=== PATIENT | female | born 1950 | race Caucasian/White ===

== ENCOUNTER → 2016-04-27 | Outpatient (CLI) | payer OTHER, MEDICAID | LOC: BHLMT 14:45 | PROVIDERS: ATTEND Internal Medicine Interventional Cardiology | DX: I48.91 Unspecified atrial fibrillation (principal); R06.00 Dyspnea, unspecified | CPT/HCPCS: 93306-PO ==

== ENCOUNTER 2016-05-13 13:31 | Day surgery (SDC) | payer OTHER, MEDICAID ==
[2016-05-13] MEDS ORDERED: MIDAZOLAM 2 MG/2 ML VIAL IVP ONE (13:39)
[2016-05-13] MEDS ORDERED: BENZOCAINE UNIT DOSE SPRAY HURRICAINE MM ONE (13:39)
[2016-05-13] MEDS ORDERED: fentaNYL 100 MCG/2 ML INJ IVP ONE (13:39)
[2016-05-13] MEDS ORDERED: NS 1,000 ML IV ONE (13:39)
[2016-05-13] MEDS ORDERED: fentaNYL 100 MCG/2 ML INJ ONE (14:17)
[2016-05-13] MEDS ORDERED: MIDAZOLAM 2 MG/2 ML VIAL ONE (14:17)
--- NOTE | 2016-05-25 16:48 | ECHO ---
[id number] + + [address] : : [place] [address] : : [phone] + + Transesophageal Echocardiographic Report + + :Name: TIGIST DE PAZ Date: 05/13/2016 02:37 PM : : Hospital Admission Number: [id number] Loc ation: CVC: :: 1950 Gender: Female : :Age: 66 yrs Race: WH,White : :Reason For Study: Eval LV Fx : :History: Eval Valves : + + MMode/2D Measurements \T\ Calculations LVOT diam: 1.9 cm LVOT area: 2.8 cm2 Normal Measurement Values: + + :LVIDd (3.5-5.7cm) IVSd (0.6-1.1cm) LVPWd (0.6-1.1cm) Aortic Root (2.0-3.7cm)Left Atrium (1.5-4.0cm): :LV Vol(d) (76-115ml) LV Vol(s) (29-48ml) Ejec Fraction (50-65%)PV Dawit (0.6- 1.2m/s) TV Dawit (0.4-1.0m/s) : :MV E Dawit (0.8-1.0m/s)MV A Dawit (0.3-1.0m/s)LVOT Dawit (0.7-1.2m/s) Asc Ao Dawit ( 0.9-1.8m/s) : + + Doppler Measurements \T\ Calculations AI max dawit: 364.2 cm/sec AI max P.1 mmHg AI dec slope: 128.5 cm/sec2 AI P1/2t: 830.2 msec Left Ventricle The left ventricular ejection fraction is normal. Right Ventricle There is a pacemaker lead in the right ventricle. The right ventricular systolic function is normal. Atria Injection of contrast documented no interatrial shunt. The interatrial septum is intact with no evidence for an atrial septal defect. No left atrial mass or thrombus visualized. No thrombus is detected in the left atrial appendage. The right atrium is mild to moderately dilated. Mitral Valve The mitral valve is normal. There is no mitral valve stenosis. There is moderate to severe mitral regurgitation. Tricuspid Valve There is moderate tricuspid regurgitation. Aortic Valve A bicuspid aortic valve cannot be excluded. There is no aortic stenosis. Severe aortic regurgitation. There is an eccentric jet of aortic insufficiency directed against the anterior mitral leaflet. Pressure 1/2 time 815ms, AI ERO .53 cm2. Pulmonic Valve The pulmonic valve is normal in structure and function. Conclusion A 2D transesophageal echocardiogram with color flow Doppler was performed. The left ventricular ejection fraction is normal. There is a pacemaker lead in the right ventricle. Injection of contrast documented no interatrial shunt. The interatrial septum is intact with no evidence for an atrial septal defect. No left atrial mass or thrombus visualized. No thrombus is detected in the left atrial appendage. The right atrium is mild to moderately dilated. A bicuspid aortic valve cannot be excluded. Severe aortic regurgitation. There is an eccentric jet of aortic insufficiency directed against the anterior mitral leaflet. Pressure 1/2 time 815ms, AI ERO .53 cm2 There is moderate to severe mitral regurgitation. There is moderate tricuspid regurgitation. Final Reading Physician: Kirti Fields signed on 05/25/2016 04:46 PM Ordering Physician: Naresh Ayoub Performed By: Naresh Ayoub MD
== END 2016-05-13 16:30 | disposition home or self-care (01) ==
LOC: FCATH 13:31
PROVIDERS: ATTEND Internal Medicine Interventional Cardiology
PROC: B246ZZ4 Ultrasonography of Right and Left Heart, Transesophageal (ICD-10-PCS; principal; 2016-05-13)
DX: I34.0 Nonrheumatic mitral (valve) insufficiency (principal); Z79.01 Long term (current) use of anticoagulants; I48.0 Paroxysmal atrial fibrillation; I47.1 Supraventricular tachycardia
CPT/HCPCS: J2250; J3010

== ENCOUNTER 2016-06-14 10:25 | Day surgery (SDC) | payer OTHER, MEDICAID ==
[2016-06-14] MEDS ORDERED: PROPOFOL/EMULSION 500 MG/50 ML BOTTLE IV ONE (11:31)
--- NOTE | 2016-06-14 13:23 | GPN ---
[f rep st] PROCEDURE NOTE DATE OF PROCEDURE: 06/14/2016 PROCEDURE: Esophagogastroduodenoscopy and biopsy. INDICATION: Abdominal pain, reflux, and the patient is going to be undergoing valve replacement in the near future. PREOPERATIVE DIAGNOSIS: Rule out peptic ulcer disease. POSTOPERATIVE DIAGNOSES: 1. Crepe paper esophagus. 2. Gastritis with small erosions. 3. Normal duodenum. 4. Lap-Band present in upper portion of the stomach. INFORMED CONSENT: I discussed with the patient regarding the procedure, alternatives, benefits, and risks, including bleeding, perforation, infection, risk of medication. Informed consent was signed and witnessed. COMPLICATIONS: None immediate. MEDICATIONS: General anesthesia. DESCRIPTION OF PROCEDURE: After adequate anesthesia performed, the patient was in left lateral decu bitus position and the forward-viewing upper endoscope was entered in the oropharynx and advanced un marva direct vision down the esophagus. The proximal esophagus had some mild crepe paper changes, and it got more prominent as you got into the middle and distal esophagus. The patient did have a smal l hiatal hernia present. There was a Lap-Band present in the upper portion of the stomach. I was a ble to advance the scope easily through the Lap-Band, into the distal stomach. There was gastritis with small erosions in the antrum and erythema, and some gastritis in the body. Biopsies were taken for histologic review. The pylorus was normal. The duodenal bulb and sweep were normal. The endo scope was withdrawn back in the stomach and retroflexed examination was performed. Photographs of t he Lap-Band in place were obtained. The endoscope was withdrawn in the esophagus and biopsies from both the distal and proximal esophagus were obtained. The endoscope was then completely withdrawn, confirming the above findings. The patient tolerated the procedure well and was transferred to the recovery room in satisfactory condition. IMPRESSION: 1. Changes consistent with crepe paper esophagus, which could be related to eosinophilic esophagiti s or reflux esophagitis, among other etiologies. 2. Gastritis with moderate inflammation of the antrum with erosions and mild inflammation in the leilani dy, status post biopsies. 3. Normal duodenum. RECOMMENDATIONS: 1. Start PPI such as pantoprazole 40 mg once daily, half an hour to an hour before breakfast. 2. Anti-reflux lifestyle changes. 3. Follow up pathology of polyps with evidence of eosinophilic esophagitis. May consider treatment with fluticasone, swallowed not inhaled. Alternatively, we can keep on a PPI for a month or two an d repeat to see if there is any evidence of PPI responsive EoE, i.e., that the esophagus would look normal and biopsies not reveal any evidence of eosinophilia. 4. Proceed with cardiac surgery as planned. I do not see any significant lesion in the upper GI tr act that would cause any significant blood loss with anticoagulation. 5. Further recommendations to follow results of above and clinical course. 6. Follow up with primary care and specialists as scheduled. 7. As noted above, the changes in the esophagus can be seen with eosinophilic esophagitis or with r eflux esophagitis. I do not think this is esophageal dissecans superficialis, which is also a benig n condition but can be associated with pemphigus vulgaris, use of bisphosphonates, and the other judah ologies as well. I expect the patient will do well with PPI therapy. The question will be how long will need to be on PPI therapy and I can determine that when I see her as an outpatient down the ro ad after her cardiac surgery. Thank you for allowing me participate in the patient's healthcare. Do not hesitate to call me with questions. Copy requested to: Dr. Armenta /[id number]/MODL
[2016-06-14] MEDS ORDERED: ACETAMINOPHEN 500 MG TAB ONE (14:11)
== END 2016-06-14 14:35 | disposition home or self-care (01) ==
LOC: FSGY 10:25
PROVIDERS: ATTEND Internal Medicine Gastroenterology
PROC: 0DB68ZX Excision of Stomach, Via Natural or Artificial Opening Endoscopic, Diagnostic (ICD-10-PCS; principal; 2016-06-14 11:30)
PROC: 0DB58ZX Excision of Esophagus, Via Natural or Artificial Opening Endoscopic, Diagnostic (ICD-10-PCS; principal; 2016-06-14 11:30)
DX: K29.70 Gastritis, unspecified, without bleeding (principal); K21.9 Gastro-esophageal reflux disease without esophagitis; Z98.84 Bariatric surgery status; I48.91 Unspecified atrial fibrillation; G47.33 Obstructive sleep apnea (adult) (pediatric); E66.9 Obesity, unspecified
CPT/HCPCS: J2704

== ENCOUNTER 2016-06-21 10:55 | Inpatient (IN) | payer OTHER, MEDICAID ==
[2016-06-21] MEDS ORDERED: diphenhydrAMINE 25 MG CAP PO ONE (11:12)
[2016-06-21] MEDS ORDERED: DIAZEPAM 5 MG TAB PO ONE (11:12)
[2016-06-21] MEDS ORDERED: NS 1,000 ML IV ONE (11:12)
[2016-06-21] MEDS ORDERED: ASPIRIN EC 325 MG TAB PO ONE (11:12)
[2016-06-21] MEDS ORDERED: FAMOTIDINE 20 MG TAB PO ONE (11:12)
--- NOTE | 2016-06-21 11:40 | CPEKG ---
Heart Rate: 71 RR Interval: 845 QRSD Interval: 114 QT Interval: 488 QTC Interval: 531 QRS Ashton: 23 T Wave Ashton: 227 EKG Severity - ABNORMAL ECG - EKG Impression: AFIB/FLUT AND V-PACED COMPLEXES Electronically Signed By: Javi Vyas 22-Jun-2016 11:48:50
[2016-06-21 12:05] LABS: % IMMATURE GRANULYOCYTES 0.4 % (0.0-1.1); ABSOLUTE IMMATURE GRANULOCYTES 0.03 10^3/uL (0.00-0.10); ADD DIFF? NO; ADD MORPH? NO; ADD SCAN? NO; ATYPICAL LYMPHOCYTE FLAG 10 (0-99); FRAGMENT RBC FLAG 20 (0-99); HEMATOCRIT 34.9 % (38.0-47.0); HEMOGLOBIN 10.3 g/dL (12.6-16.3); LEFT SHIFT FLG 0 (0-99); LIPEMIA HEMOLYSIS FLAG 70 (0-99); MEAN CELL HEMOGLOBIN 23.5 pg (27.9-34.1); MEAN CELL HEMOGLOBIN CONCENTR. 29.5 g/dL (32.4-36.7); MEAN CELL VOLUME 79.7 fL (81.5-99.8); MEAN PLATELET VOLUME 9.9 fL (8.7-11.7); PLATELET CLUMPS FLAG 0 (0-99); PLATELET COUNT 238 10^3/uL (150-400); RED BLOOD CELL COUNT 4.38 10^6/uL (4.18-5.33); RED CELL DISTRIBUTION WIDTH 15.9 % (11.5-15.2)
[2016-06-21 12:27] LABS: INR 1.07 (0.83-1.16); PROTIME(PATIENT) 13.8 SEC (12.0-15.0)
[2016-06-21 12:31] LABS: ANION GAP 16 mEq/L (8-16); CALCIUM 9.6 mg/dL (8.5-10.4); CARBON DIOXIDE 20 mEq/l (22-31); CHLORIDE 105 mEq/L (97-110); CREATININE 1.2 mg/dL (0.6-1.0); GLOMERULAR FILTRATION RATE 45; GLUCOSE 87 mg/dL (70-100); POTASSIUM 4.5 mEq/L (3.5-5.2); SODIUM 141 mEq/L (134-144)
[2016-06-21] MEDS ORDERED: MIDAZOLAM 2 MG/2 ML VIAL ONE ×2 (13:07→14:17)
[2016-06-21] MEDS ORDERED: LIDOCAINE 1% 30 ML SDV ONE (13:07)
[2016-06-21] MEDS ORDERED: fentaNYL 100 MCG/2 ML INJ ONE (13:07)
[2016-06-21] MEDS ORDERED: IOPAMIDOL (ISOVUE 370) 100 ML BTL IV ONE (13:08)
[2016-06-21 14:07] LABS: HEMOGLOBIN A1C 5.5 % (4.0-6.0)
[2016-06-21] MEDS ORDERED: ACETAMINOPHEN 325 MG TAB PO PRN (15:08)
[2016-06-21] MEDS ORDERED: ONDANSETRON 4 MG/2 ML VIAL IVP PRN (15:08)
[2016-06-21] MEDS ORDERED: ATROPINE SULFATE 1 MG/10 ML SYR IVP PRN (15:08)
[2016-06-21] MEDS ORDERED: NS 1,000 ML IV SCH (15:15)
--- NOTE | 2016-06-21 15:18 | PDDXCAT ---
Diagnostic Cath Note - . Date: 06/21/16 Outdoor Landscape Architect: Mega Indication: other (Valvular heart disease; surgery planned for 06/22.) - Procedure Access: right groin Procedure: left heart catheterization, coronary angiography, left ventriculogram , right heart catheterization - Materials Left Heart Cath size: 6F Left Heart Cath materials: standard multipack (JL4, JR4, pigtail) Right Heart Cath size: 7F Right Heart Cath materials: PWP catheter - Findings-Left Heart Catheterization LM: Normal. LAD: Very minimal irregularities. LCX: Very minimal irregularities. RCA: Very minimal irregularities. EDP: 25 mmHg LVEF: 60%; severe mitral regurgitation noted. Wall motion: [place] shaped apex; no hypokinetic zones. - Findings-Right Heart Catheterization RA: 20 mmHg RV: 62/18 mmHg PA: 72/39/52 mmHg (O2 sat 41.1%) PAOP: 26 mmHg AO: 155/82/98 (O2 sat 91.0%) CO: 2.91 L/min CI: 1.33 L/min/sq mtr Complications: None Estimated blood loss: <50ml Closure method: Angioseal Assessment: 1) Preserved LV systolic function. 2) No significant CAD. 3) Severe pulmonary hypertension. 3) Severe mitral regurgitation. Patient Problems: Problems Problem Status Onset Atrial fibrillation with rapid ventricular response Acute Cardiomyopathy Acute
[2016-06-21] MEDS ORDERED: CYCLOBENZAPRINE 10 MG TAB PO PRN (16:01)
[2016-06-21] MEDS ORDERED: ACETAMN/DIPHENHYDRAMINE 500/25MG TAB PO PRN (16:01)
--- NOTE | 2016-06-21 16:52 | PDGENHP ---
History and Physical - Chief Complaint preop multi valve repair/replace and ablation of atrial fibrillation - History of Present Illness 66 yo morbidly obese female with a hx of HOCM, PPM/ICD, and severe MR/TR/AI associated with class III symptoms, admitted one day in advance of valvular surgery to complete risk stratification. No significant changes in functional capacity since last seen in clinic. Still breathless after only a few steps and relying on assistance to complete ADLs. Denies wt gain, leg edema, palpitations , increased orthopnea or syncope. Did see GI last week and cleared for surgery. Precautionary bxs taken but results not yet known. Eliquis on hold since EGD. History Information - Allergies/Home Medication List Allergies/Adverse Reactions: levofloxacin [From Levaquin] Allergy (Intermediate, Verified 05/21/14 15:47) Muscle Cramping aspirin Allergy (Verified 02/08/16 19:04) Other-Enter Comments codeine Allergy (Verified 02/08/16 19:04) Other-Enter Comments Home Medications: Apixaban [Eliquis] 5 mg PO BID 08/11/14 [Last Taken 06/20/16 21:00] Citalopram [CeleXA 20 MG] 40 mg PO DAILY 08/11/14 [Last Taken 06/21/16] Cyclobenzaprine [Flexeril 10 MG (*)] 10 mg PO TID PRN 08/11/14 [Last Taken 12/11] Nystatin Powder [Mycostatin Powder] 1 tiffanie TP DAILY 08/11/14 [Last Taken 06/21/16 ] Simvastatin [Zocor] 20 mg PO HS 08/11/14 [Last Taken 06/19/16] Docusate Sodium [Colace 100 MG (*)] 100 mg PO BID 01/07/16 [Last Taken 06/20/16 09:00] Ergocalciferol [Vitamin D2 (*)] 50,000 unit PO Q14D 01/07/16 [Last Taken ] Acetaminophen [Tylenol ES 500 mg (*)] 1,000 mg PO Q4-6PRN PRN 02/08/16 [Last Taken 06/21/16] Acetamn/Diphenhydramine 500/25 [Tylenol PM (*)] 2 each PO HS PRN 06/21/16 [Last Taken Unknown] Acyclovir 800 mg PO 5XD PRN 06/21/16 [Last Taken Unknown] Diclofenac Sodium [Voltaren Gel (*)] 2 gm TP QID 06/21/16 [Last Taken 06/21/16] Furosemide [Lasix 20 MG (*)] 20 mg PO DAILY 06/21/16 [Last Taken 06/18/16] Pantoprazole Sodium [Protonix 40mg (*)] 40 mg PO BID 06/21/16 [Last Taken ] oxyCODONE/APAP 5/325 [Percocet 5/325 (*)] 1 tab PO Q4HRS PRN 06/21/16 [Last Taken Unknown] I have personally reviewed and updated: family history, medical history, social history, surgical history - Past Medical History atrial fibrillation (paroxysmal), arthritis (knees, back), glaucoma, hypertension, recurrent UTI Additional medical history: HOCM - treated with alcohol septal ablation. Dual chamber PPM/ICD - Biotronik Lumax; 97% Vpaced. Underlying atrial tachycardia. Chronic anticoagulation - Eliquis. obesity, BMI 35-40. ANNETTE "when heavier". chronic joint pain. glaucoma. depression with anxiety. Hpylori gastritis and secondary anemia Apr 2016 - Surgical History Reports: ablation (alcohol septal ablation 2004; left AT ablation Jan 2016), pacemaker/AICD (Biotronik Lumax 2009) Additional surgical history: gastric banding 2008. left TKA 2014 - Family History Positive for: cancer, diabetes type II, renal disease, vascular disease, CAD, hypertension - Social History Smoking Status: Never smoked Alcohol Use: None Review of Systems ROS: 10pt was reviewed & negative except for what was stated in HPI & below Gastrointestinal: Reports: other (early satiety d/t gastric banding) Physical Exam Constitutional: no apparent distress (still sleepy from cath), obese Eyes: anicteric sclera, other (PER) Ears, Nose, Mouth, Throat: moist mucous membranes, other (no dental disrepair) Cardiovascular: regular rate and rhythym, systolic murmur (II/ BAR LSB, loudest at apex.), other (left chest pacer pocket ) Respiratory: no respiratory distress, clear to auscultation (anteriorly) Gastrointestinal: soft, non-tender abdomen Genitourinary: other (morocho in place) Skin: warm, normal color Musculoskeletal: other (symmetric tone, no visible edema, rt groin cath site soft and dressing intact) Lab Data & Imaging Review 06/21/16 11:45 06/21/16 11:45 WBC 7.14 10^3/uL (3.80-9.50) 06/21/16 11:45 RBC 4.38 10^6/uL (4.18-5.33) 06/21/16 11:45 Hgb 10.3 g/dL (12.6-16.3) L 06/21/16 11:45 Hct 34.9 % (38.0-47.0) L 06/21/16 11:45 MCV 79.7 fL (81.5-99.8) L 06/21/16 11:45 MCH 23.5 pg (27.9-34.1) L 06/21/16 11:45 MCHC 29.5 g/dL (32.4-36.7) L 06/21/16 11:45 RDW 15.9 % (11.5-15.2) H 06/21/16 11:45 Plt Count 238 10^3/uL (150-400) 06/21/16 11:45 MPV 9.9 fL (8.7-11.7) 06/21/16 11:45 Neut % (Auto) 69.0 % (39.3-74.2) 06/21/16 11:45 Lymph % (Auto) 21.0 % (15.0-45.0) 06/21/16 11:45 Sumner % (Auto) 8.3 % (4.5-13.0) 06/21/16 11:45 Eos % (Auto) 0.7 % (0.6-7.6) 06/21/16 11:45 Baso % (Auto) 0.6 % (0.3-1.7) 06/21/16 11:45 Nucleat RBC Rel Count 0.0 % (0.0-0.2) 06/21/16 11:45 Absolute Neuts (auto) 4.93 10^3/uL (1.70-6.50) 06/21/16 11:45 Absolute Lymphs (auto) 1.50 10^3/uL (1.00-3.00) 06/21/16 11:45 Absolute Monos (auto) 0.59 10^3/uL (0.30-0.80) 06/21/16 11:45 Absolute Eos (auto) 0.05 10^3/uL (0.03-0.40) 06/21/16 11:45 Absolute Basos (auto) 0.04 10^3/uL (0.02-0.10) 06/21/16 11:45 Absolute Nucleated RBC 0.00 10^3/uL (0-0.01) 06/21/16 11:45 Immature Gran % 0.4 % (0.0-1.1) 06/21/16 11:45 Immature Gran # 0.03 10^3/uL (0.00-0.10) 06/21/16 11:45 PT 13.8 SEC (12.0-15.0) 06/21/16 11:45 INR 1.07 (0.83-1.16) 06/21/16 11:45 Sodium 141 mEq/L (134-144) 06/21/16 11:45 Potassium 4.5 mEq/L (3.5-5.2) 06/21/16 11:45 Chloride 105 mEq/L (97-110) 06/21/16 11:45 Carbon Dioxide 20 mEq/l (22-31) L 06/21/16 11:45 Anion Gap 16 mEq/L (8-16) 06/21/16 11:45 BUN 22 mg/dL (7-23) 06/21/16 11:45 Creatinine 1.2 mg/dL (0.6-1.0) H 06/21/16 11:45 Estimated GFR 45 06/21/16 11:45 Glucose 87 mg/dL (70-100) 06/21/16 11:45 Hemoglobin A1c 5.5 % (4.0-6.0) 06/21/16 11:45 Estim Average Glucose 111 mg/dL (68-126) 06/21/16 11:45 Calcium 9.6 mg/dL (8.5-10.4) 06/21/16 11:45 Patient ABO/Rh B POSITIVE 06/21/16 11:45 Antibody Screen NEGATIVE 06/21/16 11:45 Visualized and Interpreted Chest x-ray results: No Interpretation: LHC/RHC: Rt dom coros, no obstructive dz, EDP 25, EF 60%, 3+ MR , PA 72/39, CI 1.3 EKG Interpretation: Positive for: other (AF, Vpaced) Assessment & Plan Assessment: Severe MR, TR and AI Chronic dCHF, NYHA class III+ Severe PHTN Low cardiac output Chronic anemia - resolving gastritis PAF ICD Plan: CXR, carotid US Type and cross x 2u PRBC Biotronik rep to deactivate ICD 06/22 by 0630. MVA/R, TVA, CoxMaze4, possible AVR pending root size, tomorrow @ 0715. Dr Armenta to review imaging and consent.
[2016-06-21] MEDS ORDERED: CHLORHEXIDINE GLUC HIBICLENS 118 ML BTL TP SCH (21:00)
[2016-06-21] MEDS: ATORVASTATIN CALCIUM 10 MG TAB PO SCH (21:27)
[2016-06-21] MEDS: DOCUSATE SODIUM 100 MG CAP PO SCH (21:27)
[2016-06-21] MEDS: PANTOPRAZOLE SODIUM 40 MG TAB PO SCH (21:34)
[2016-06-21] MEDS: MUPIROCIN 2% 22 GM OINT NS SCH (21:36)
[2016-06-22 05:19] LABS: ANION GAP 8 mEq/L (8-16); CALCIUM 8.9 mg/dL (8.5-10.4); CARBON DIOXIDE 23 mEq/l (22-31); CHLORIDE 108 mEq/L (97-110); GLOMERULAR FILTRATION RATE 56; GLUCOSE 79 mg/dL (70-100); POTASSIUM 4.9 mEq/L (3.5-5.2); SODIUM 139 mEq/L (134-144)
[2016-06-22] MEDS ORDERED: MUPIROCIN 2% 22 GM OINT NS ONE (06:00)
[2016-06-22] MEDS ORDERED: INSULIN REGULAR HUMAN 100 UNIT in NS 100 ML IV ONE (06:00)
[2016-06-22] MEDS ORDERED: SODIUM BICARBONATE 20 MEQ, LIDOCAINE 1% 10 ML in NORMOSOL-R 1,000 ML MISC ONE (06:00)
[2016-06-22] MEDS ORDERED: PHENYLEPHRINE HCL 50 MG in NS 250 ML IV ONE (06:00)
[2016-06-22] MEDS ORDERED: NS 1,000 ML IV ONE (06:00)
[2016-06-22] MEDS ORDERED: MUPIROCIN 2% 22 GM OINT NS SCH (06:00)
[2016-06-22] MEDS ORDERED: niCARdipine/NACL 200 ML IV SCH (06:00)
[2016-06-22] MEDS ORDERED: AMINOCAPROIC ACID 5 GM/20 ML VIAL IV ONE (06:00)
[2016-06-22] MEDS ORDERED: NOREPINEPHRINE BITARTRATE 16 MG in NS 250 ML IV ONE (06:00)
[2016-06-22] MEDS ORDERED: ceFAZolin 2 GM/DEXTROSE 100 ML IV ONE (06:00)
[2016-06-22] MEDS ORDERED: CHLORHEXIDINE GLUC HIBICLENS 118 ML BTL TP SCH (06:00)
[2016-06-22] MEDS ORDERED: MANNITOL 25% 12.5 GM/50 ML VIAL IV ONE (06:00)
[2016-06-22] MEDS ORDERED: CITRATE DEXTROSE SOLN 500 ML BAG MISC ONE (06:00)
[2016-06-22] MEDS ORDERED: DOPamine/DEXTROSE/250 ML BAG IV ONE (06:34)
[2016-06-22] MEDS ORDERED: POTASSIUM Cl (KCl) 20 MEQ/50 ML BAG IV ONE (06:34)
[2016-06-22] MEDS ORDERED: LIDOCAINE 2% 100 MG/5 ML SYR ONE (06:34)
[2016-06-22] MEDS ORDERED: PROTAMINE SULFATE 50 MG/5 ML VIAL IVP ONE (06:34)
[2016-06-22] MEDS ORDERED: MILRINONE/DEXTROSE/100 ML BAG IV ONE (06:34)
[2016-06-22] MEDS ORDERED: niCARdipine/NACL/200 ML BAG IV ONE (06:34)
[2016-06-22] MEDS ORDERED: ALBUMIN 5% 250 ML BOTTLE IV ONE (06:34)
[2016-06-22] MEDS ORDERED: AMINOCAPROIC ACID 5 GM/20 ML VIAL ONE (06:34)
[2016-06-22] MEDS ORDERED: CALCIUM CHLORIDE 1 GM/10 ML INJ ONE (06:34)
[2016-06-22] MEDS ORDERED: NA BICARBONATE 50 MEQ/50 ML VIAL ONE (06:34)
[2016-06-22] MEDS ORDERED: ceFAZolin 1 GM VIAL ONE (06:35)
[2016-06-22] MEDS ORDERED: MAGNESIUM SULFATE 1 GM/2 ML VIAL ONE (06:35)
[2016-06-22] MEDS ORDERED: methylPREDNISolone SOD SUCC 1 GM/8 ML VIAL ONE (06:35)
[2016-06-22] MEDS ORDERED: CITRATE DEXTROSE SOLN 500 ML BAG ONE (06:35)
[2016-06-22] MEDS ORDERED: ADENOSINE 6 MG/2 ML VIAL ONE (06:35)
[2016-06-22] MEDS ORDERED: HEPARIN 10,000 UNIT/10 ML MDV ONE (06:35)
[2016-06-22] MEDS ORDERED: AMIODARONE HCL 150 MG/3 ML VIAL ONE (06:35)
[2016-06-22 06:51] LABS: CHOLESTEROL 135 mg/dL (140-220); CHOLESTEROL/HDL RATIO 3.07 RATIO (1.00-4.44); HIGH DENSITY LIPOPROTEIN 44 mg/dL (40-85); LDL/HDL RATIO 1.16 RATIO (1.00-3.22); LOW DENSITY LIPOPROTEIN 51 mg/dL (80-100); MAGNESIUM 2.3 mg/dL (1.6-2.3); NON-HIGH DENSITY LIPOPROTEIN 91 mg/dL (90-129); TRIGLYCERIDE 203 mg/dL (35-135); VERY LOW DENSITY LIPOPROTEINS 40 mg/dL (8-25)
[2016-06-22] MEDS ORDERED: MIDAZOLAM 2 MG/2 ML VIAL ONE ×2 (07:00→07:08)
[2016-06-22] MEDS ORDERED: fentaNYL 250 MCG/5 ML INJ ONE ×2 (07:08)
[2016-06-22] MEDS ORDERED: PROPOFOL/EMULSION 500 MG/50 ML BOTTLE IV ONE (07:10)
[2016-06-22] MEDS ORDERED: SKIN ADHESIVE (DERMABOND) 1 EACH TP ONE (07:34)
[2016-06-22] MEDS ORDERED: MINERAL OIL 10 ML VIAL TP ONE (07:34)
[2016-06-22] MEDS ORDERED: DEXMEDETOMIDINE HCL 400 MCG in NS 100 ML IV SCH (11:00)
[2016-06-22] MEDS: PANTOPRAZOLE SODIUM 40 MG TAB PO SCH (11:24)
[2016-06-22] MEDS: MUPIROCIN 2% 22 GM OINT NS SCH ×2 (11:24→21:05)
[2016-06-22] MEDS: DOCUSATE SODIUM 100 MG CAP PO SCH ×2 (11:24→21:14)
[2016-06-22] MEDS ORDERED: SODIUM CL NASAL 45 ML BTL EACHNARE PRN (12:23)
[2016-06-22] MEDS ORDERED: METOCLOPRAMIDE 10 MG/2 ML VIAL IVP PRN (12:23)
[2016-06-22] MEDS ORDERED: MEPERIDINE 25 MG/ML SYR IVP PRN (12:23)
[2016-06-22] MEDS ORDERED: ACETAMINOPHEN 650 MG SUPP PR PRN (12:23)
[2016-06-22] MEDS ORDERED: POTASSIUM Cl (KCl) 50 ML IV PRN (12:23)
[2016-06-22] MEDS ORDERED: MAGNESIUM HYDROXIDE 30 ML UDCUP PO PRN (12:23)
[2016-06-22] MEDS ORDERED: LACTULOSE 20 GM/30 ML UDCUP PO PRN (12:23)
[2016-06-22] MEDS ORDERED: D50W 25 GM/50 ML SYR IVP PRN (12:23)
[2016-06-22] MEDS ORDERED: MAGNESIUM SULF 2 GM/WATER 50 ML IV ONE (12:23)
[2016-06-22] MEDS ORDERED: POLYETHYLENE GLYCOL 3350 17 GM PKT PO PRN (12:23)
[2016-06-22] MEDS ORDERED: PANTOPRAZOLE SODIUM 40 MG in NS 100 ML IV ONE (12:23)
[2016-06-22] MEDS ORDERED: CEPACOL LOZENGE PO PRN (12:23)
[2016-06-22] MEDS ORDERED: BISACODYL 10 MG SUPP PR PRN (12:23)
[2016-06-22] MEDS ORDERED: HYDROCODONE/APAP 5/325 TAB PO PRN (12:23)
[2016-06-22] MEDS ORDERED: INSULIN REGULAR HUMAN 100 UNIT in NS 100 ML IV SCH (12:30)
[2016-06-22] MEDS ORDERED: NS 1,000 ML IV SCH (12:30)
[2016-06-22] MEDS ORDERED: IPRATROPIUM/ALBUTEROL 3 ML DEYVIAL IH PRN (12:34)
[2016-06-22] MEDS ORDERED: fentaNYL 100 MCG/2 ML INJ ONE (13:02)
--- NOTE | 2016-06-22 13:36 | POSTOPPROG ---
Post Op Note Date of Operation: 06/22/16 Surgeon: Naresh Armenta Roll Coverer: Asha Anesthesiologist: Roscoe Anesthesia: GET(General Endotracheal) Pre-op Diagnosis: valvular CM, CHF class 3, AI/MR/TR/PAF Procedure: AVR #21magna/MvR#25magna/TVA#26 ring CMIV wAtriclip Inf/Abcess present in the surg proc area at time of surgery?: No EBL: 50-100 Drains: Other (3 blakes)
[2016-06-22 13:45] LABS: PCO2 VENOUS 44 mmHg (40-44); PH VENOUS BLOOD 7.24 (7.31-7.42); PO2 VENOUS 32 mmHg (35-40); TCO2 VENOUS 20 mEq/L (23-27); VEN MEASURED OXYGEN SATURATION 46 % (65-75)
[2016-06-22 13:51] LABS: MEAN CELL HEMOGLOBIN 24.5 pg (27.9-34.1); MEAN CELL HEMOGLOBIN CONCENTR. 29.5 g/dL (32.4-36.7); MEAN CELL VOLUME 83.1 fL (81.5-99.8); RED BLOOD CELL COUNT 3.02 10^6/uL (4.18-5.33)
[2016-06-22 13:53] LABS: HEMATOCRIT 25.1 % (38.0-47.0); HEMOGLOBIN 7.4 g/dL (12.6-16.3)
[2016-06-22] MEDS ORDERED: SODIUM BICARBONATE 50 MEQ/50 ML SYR ONE (14:03)
[2016-06-22 14:11] LABS: CALCULATED OXYGEN SATURATION 98 % (92-95)
--- NOTE | 2016-06-22 14:12 | GOP ---
[f rep st] OPERATIVE REPORT DATE OF OPERATION: 06/22/2016 SURGEON: Naresh Armenta DO GLUE SPECIALTY SUPERVISOR: Ponce Barry P.A.-C. ANESTHESIOLOGIST: Ritchie Malhotra. PREOPERATIVE DIAGNOSIS: Class 3 congestive heart failure with valvular cardiomyopathy and longstand ing persistent atrial fibrillation. POSTOPERATIVE DIAGNOSIS: Class 3 congestive heart failure with valvular cardiomyopathy and longstan ding persistent atrial fibrillation. PROCEDURE PERFORMED: 1. Aortic valve replacement with a #21 Magna bioprosthesis. 2. Mitral valve replacement with chordal sparing with a #25 Magna bioprosthesis. 3. Tricuspid valve annuloplasty with a #26 Leija ring. 4. Full left and right-sided Carr Maze 4 procedure with combined radiofrequency and cryoablation. 5. After clip to left atrial appendage. FINDINGS: The patient had persistent longstanding atrial fibrillation despite multiple prior interv entions, including AV node ablation. She also had evidence of atrial flutter on presentation this m orning from the left-sided flutter. She also had moderate aortic insufficiency, severe mitral and s evere tricuspid insufficiency with valvular cardiomyopathy. DESCRIPTION OF PROCEDURE: She was consented for surgery, brought to the operating room, intubated a nd monitoring lines were placed. She was prepped and draped in sterile classical manner. Intraoperative transesophageal echo confirmed prior valvular lesions, as per preop echo. She was heparinized, cannulated with bicaval cannulas and tapes. We then did exit block testing on both left and right sides, as well as GP testing on the right side only. We found no GPs that were active and she had no evidence of exit block preoperatively. We then encircled the right pulmonary veins with radiofrequency and ablated it approximately 8-9 janina es with multiple clamp applications after dissecting the fat off the AV groove. We then proceeded with initiating cardiopulmonary bypass, and encircling the left pulmonary veins an d performing a similar ablation on the antrum without difficulty. I dissected the left atrial appen dage off the left atrium. It was a large appendage. Prior to arresting the heart, I performed the coronary sinus cryoablation between the terminus of the left and right coronaries without difficulty . We then arrested the heart, resected the tip of the appendage and then ablated between the append age and left superior pulmonary vein multiple times. We then placed an Atra clip across the appenda ge rendering it flush with the left atrium. We then proceeded with exposing the mitral valve throug h the right superior pulmonary vein placing a retractor. I then performed the roof lesion with 2 ap plications of cryoablation in order to have an excellent ablation line extending into the left super ior pulmonary vein. I also did the isthmus lesion of the mitral valve with cryo, and then did the f hawk lesion with cryo into the left inferior pulmonary vein. I did this because the patient was mor bidly obese and safe access with radiofrequency was felt to be uncertain. I then inspected the mitral valve. It was very small, very thin-walled and appeared to be a predomi nantly annular dilatation, but with some retraction of the anterior leaflet. Because of the cardiom yopathy, a very small valve and difficult exposure because of her morbid obesity, I elected to do a chordal sparing replacement with a 25 Magna valve without difficulty. This patient has also had previous septal ablation for septal hypertrophy and previous YESY, and I fe lt that although the proximal portion was adequately removed, the distal and apical portions of the septum likely still had the possibility to cause chordal YESY. For that reason, I felt replacement w ould be safer. I felt that access to the mid and distal portion of the septum would be very difficu lt due to her morbid obesity and body habitus. I then placed the mitral valve without difficulty ut ilizing core knots. We then closed the left atrium with a sump left across it in order to eventually do the aortic valve . I then exposed the aortic valve. There was thickening and retraction of the majority of the noncoro nary cusp. I looked at potentially trying to repair that, but I felt that it would be inadequate an d because of her regurgitation, which was felt to be moderate, I resected the leaflets and placed a 21 Magna valve in the supraannular position without difficulty utilizing core knots. The aortotomy was closed in a 2-layer fashion. The cross-clamp was then removed in Trendelenburg. The caval tapes were secured and a vertical atriotomy was performed down to the septum and then conn ecting it to the tricuspid isthmus with cryoablation while perfusing the right coronary. I then did the free wall superior and inferior vena caval ablations, avoiding the sinus node, staying posterio r with radiofrequency. The tricuspid valve was small and the leaflets were somewhat adherent to mul tiple defibrillator and pacemaker leads entering the right ventricle. I initially tried dissected i t off the leaflet, but was concerned that I would destroy the leaflet in the process, and for that r fermín, I placed a 26 mm Leija ring in the anulus with interrupted 2-0 Tycron sutures with good coa ptation, although some central regurgitation persisting because of the multiple leads. I did try to move those toward the septal commissure but, because of its adherence to the posterior leaflet, I w as reluctant to be too aggressive. Spontaneous cardiac activity was noted to resume. The right atrium was closed in a 2-layer fashion. The patient was kept in Trendelenburg while deair ing had been completed with LV sump and ascending aortic venting. The patient was then easily weane d from bypass. The valve showed good function without regurgitation, biventricular function appeare d to be intact and she was in sinus rhythm. The cannulas were removed and oversewn. The heparin wa s reversed with protamine. One left pleural and 2 mediastinal drains were placed. The thymic fat a nd pericardium were closed. The chest was closed in standard fashion. The patient was returned to the ICU in stable condition. /[id number]/MODL
[2016-06-22] MEDS ORDERED: SODIUM BICARBONATE 50 MEQ/50 ML SYR IVP ONE ×2 (14:30→16:30)
[2016-06-22] MEDS: ceFAZolin 2 GM/DEXTROSE 100 ML IV SCH ×2 (14:53→22:14)
[2016-06-22 15:08] LABS: BASE EXCESS -6.7 mEq/L (-2.5-2.5); BICARBONATE 17 mEq/L (22-26); MEASURED OXYGEN SATURATION 97 % (92-95); PCO2 28 mmHg (34-38); PO2 79 mmHg (65-75); TCO2 18 mEq/L (23-27)
[2016-06-22 15:15] LABS: ASSIST CONTROL YES; END TIDAL CO2 31; O2 CONCENTRATIION 50 % (0-100); P/F RATIO 158 RATIO
--- NOTE | 2016-06-22 15:31 | GCON ---
[f rep st] CONSULTATION FLIGHT INSTRUCTOR CONSULTATION. REASON FOR CONSULTATION: Patient examined postoperatively after receiving aortic valve replacement, mitral valve replacement, tricuspid annuloplasty and Maze procedure. The patient is a 66-year-old white female with a past medical history of morbid obesity, severe mitr al regurgitation, tricuspid regurgitation and AI. She also has a history of sick sinus syndrome, pa roxysmal atrial fibrillation, hypertension, hyperlipidemia, obstructive sleep apnea. Again she is e xamined postoperatively. Currently she is sedated on mechanical ventilation. All history is gleane d from the medical record. Intraoperatively she did well and there were no apparent complications. Estimated blood loss was 50-100 cc. PAST MEDICAL HISTORY: Again, significant for morbid obesity, obstructive sleep apnea, sick sinus sy ndrome, paroxysmal atrial fibrillation, hypertension, hyperlipidemia, mitochondrial myopathy. PAST SURGICAL HISTORY: Had a lap band surgery, AICD and a pacemaker placement. SOCIAL HISTORY: No history of tobacco use. No history of alcohol use. She has 1 grown child. Has good family support. CURRENT MEDICATIONS: Include Tylenol, [place], albumin, DuoNeb, Lipitor, atropine, Ancef, Dulcolax, C elexa, Flexeril, dexmedetomidine, dobutamine, insulin per protocol, Milk of Magnesia, morphine, daren rdipine, Zofran, Protonix, MiraLAX, normal saline. PHYSICAL EXAM: VITAL SIGNS: Blood pressure 171/58, pulse 62, respiration 19, temperature 36.6, oxy gen saturation is 96% on mechanical ventilation. GENERAL: She is a morbidly obese, 66-year-old whi te female who is sedated and on mechanical ventilation. HEENT: Eyes are ANDREEA, EOMI. Throat: Endo tracheal tube is in good position. NECK: Supple. No cervical adenopathy. HEART: Regular rate an d rhythm with a 3/6 systolic murmur at left sternal border without radiation. LUNGS: Show diminish ed breath sounds but no wheeze. ABDOMEN: Soft, nontender. Bowel sounds are present. EXTREMITIES: No clubbing, cyanosis, or edema. LABORATORIES: White count 5.7, hemoglobin 7.4, hematocrit is 25, platelet count is 67. Sodium is 1 40, potassium 4.3, chloride 112, CO2 23, BUN 11, creatinine is 1, glucose is 152. Arterial blood ga s is pH 7.24, pCO2 of 32, PO2 105, bicarb 19, oxygen saturation 98%. IMPRESSION: 1. Status post aortic valve replacement, mitral valve replacement, tricuspid valve annuloplasty and a Maze procedure. 2. Respiratory failure. 3. Morbid obesity. 4. Obstructive sleep apnea. 5. Sick sinus syndrome, paroxysmal atrial fibrillation. 6. Hypertension. 7. Hyperlipidemia. 8. Mitochondrial myopathy. RECOMMENDATIONS: 1. Wean from mechanical ventilation as tolerated. 2. Deep venous thrombosis and PE prophylaxis, holding anticoagulation for now. 3. Stress ulcer prophylaxis. 4. Early ambulation. 5. PT and OT. 6. Close cardiovascular monitoring. /[id number]/MODL
[2016-06-22] MEDS: ALBUMIN 5% 250 ML IV PRN ×2 (16:00→20:20)
[2016-06-22 17:24] LABS: BASE EXCESS -5.9 mEq/L (-2.5-2.5); BICARBONATE 18 mEq/L (22-26); MEASURED OXYGEN SATURATION 96 % (92-95); PCO2 33 mmHg (34-38); PO2 84 mmHg (65-75); TCO2 19 mEq/L (23-27)
[2016-06-22 17:33] LABS: CPAP YES; O2 CONCENTRATIION 40 % (0-100); P/F RATIO 210 RATIO; PATIENT RATE 17; PRESSURE SUPPORT 7
[2016-06-22] MEDS: fentaNYL 100 MCG/2 ML INJ IVP PRN ×4 (18:00→22:13)
[2016-06-22] MEDS: DOBUTamine/DEXTROSE 250 ML IV SCH (22:33)
[2016-06-23] MEDS: fentaNYL 100 MCG/2 ML INJ IVP PRN ×2 (01:12→03:17)
[2016-06-23] MEDS: ALBUMIN 5% 250 ML IV PRN ×2 (04:42→06:12)
[2016-06-23 05:09] LABS: BASE EXCESS -4.6 mEq/L (-2.5-2.5); BICARBONATE 20 mEq/L (22-26); MEASURED OXYGEN SATURATION 94 % (92-95); PCO2 36 mmHg (34-38); PO2 76 mmHg (65-75); TCO2 21 mEq/L (23-27)
[2016-06-23 05:16] LABS: % IMMATURE GRANULYOCYTES 0.5 % (0.0-1.1); ABSOLUTE IMMATURE GRANULOCYTES 0.06 10^3/uL (0.00-0.10); ADD DIFF? NO; ADD MORPH? NO; ADD SCAN? NO; ATYPICAL LYMPHOCYTE FLAG 0 (0-99); FRAGMENT RBC FLAG 0 (0-99); HEMOGLOBIN 8.4 g/dL (12.6-16.3); LEFT SHIFT FLG 30 (0-99); LIPEMIA HEMOLYSIS FLAG 80 (0-99); MEAN CELL HEMOGLOBIN 25.2 pg (27.9-34.1); MEAN CELL HEMOGLOBIN CONCENTR. 31.1 g/dL (32.4-36.7); MEAN CELL VOLUME 81.1 fL (81.5-99.8); MEAN PLATELET VOLUME 11.4 fL (8.7-11.7); PLATELET CLUMPS FLAG 10 (0-99); PLATELET COUNT 99 10^3/uL (150-400); RED BLOOD CELL COUNT 3.33 10^6/uL (4.18-5.33); RED CELL DISTRIBUTION WIDTH 15.7 % (11.5-15.2)
[2016-06-23 05:43] LABS: ANION GAP 10 mEq/L (8-16); CALCIUM 8.8 mg/dL (8.5-10.4); CARBON DIOXIDE 21 mEq/l (22-31); CHLORIDE 114 mEq/L (97-110); GLOMERULAR FILTRATION RATE 56; GLUCOSE 92 mg/dL (70-100); POTASSIUM 4.4 mEq/L (3.5-5.2); SODIUM 145 mEq/L (134-144)
[2016-06-23] MEDS: ceFAZolin 2 GM/DEXTROSE 100 ML IV SCH ×3 (06:01→21:44)
[2016-06-23] MEDS: HEPARIN 5,000 UNIT/0.5 ML SYR SC SCH ×3 (06:02→21:40)
--- NOTE | 2016-06-23 07:17 | SOAPPROG ---
SOAP Progress Note Assessment/Plan: POD #1: AV replacement with #21 Magna bioprosthesis, MV replacement with #25 Magna bioprosthesis with chordal sparing, TV annuloplasty with #26 ring, full Carr-Maze IV Severe AI, severe MR, moderate TR s/p AVR, MVR, TVA - weaned from CPB in SR on 10 mcgs of dobutamine with preserved LV/RV function. Extubated in ICU. HCT 27 after 2U of PRBCs. 60-70s SR, SBP in 120s, on 2-3L NC with normal renal function. - Wean dobutamine as tolerated - FC/AL to remain while on dobutamine - BB when appropriate - SCDs/heparin SQ for DVT prophylaxis - Coumadin for thromboprophylaxis as per Carr-Maze IV - Swallow eval prior to PO intake - OOB to chair Longstanding PAF s/p Carr-Maze IV - Coumadin for INR goal 2-3, duration as determined by stability of rhythm Class III CHF with normal EF, diastolic dysfunction, and valvular cardiomyopathy - BB/ACEi/Lasix when appropriate Acute blood loss anemia with preoperative anemia - Stable s/p 2U PRBCs Presence of AICD - Defibrillator function turned on post-op and set to AV pace at 80 Morbid obesity - PT/OT - Aggressive pulmonary toilet Subjective: Admits to mild pain, denies SOB. Objective: Vital Signs Temp Pulse Resp BP Pulse Ox 38 C 68 17 118/46 L 93 06/23/16 06:00 06/23/16 06:00 06/23/16 06:00 06/23/16 06:00 06/23/16 06:00 Laboratory Results 06/23/16 05:00 06/23/16 05:00 06/22/16 06/23/16 06/24/16 05:59 05:59 05:59 Intake Total 400 2153 250 Output Total 1200 1523 Balance -800 630 250 PT 13.8 SEC (12.0-15.0) 06/21/16 11:45 INR 1.07 (0.83-1.16) 06/21/16 11:45 Physical Exam - Physical Exam General Appearance: WD/WN, no apparent distress, obese EENT: normal ENT inspection Neck: normal inspection Respiratory: No respiratory distress Cardiac/Chest: regular rate, rhythm Abdomen: non-tender, soft, No distended Skin: normal color, warm/dry Neuro/Psych: no motor/sensory deficits ICD10 Worksheet Patient Problems: Problems Problem Status Onset S/P AVR (aortic valve replacement) Acute S/P TVR (tricuspid valve repair) Acute S/P ablation of atrial fibrillation Acute S/P mitral valve replacement with bioprosthetic valve Acute Aortic regurgitation Chronic Mitral regurgitation Chronic Morbid obesity Chronic Tricuspid insufficiency Chronic Atrial fibrillation with rapid ventricular response Acute Cardiomyopathy Acute
[2016-06-23] MEDS ORDERED: NYSTATIN POWDER 15 GM BTL TP SCH (09:00)
[2016-06-23] MEDS: DOBUTamine/DEXTROSE 250 ML IV SCH (09:13)
[2016-06-23] MEDS: MUPIROCIN 2% 22 GM OINT NS SCH ×2 (09:18→20:09)
[2016-06-23] MEDS: DOCUSATE SODIUM 100 MG CAP PO SCH ×2 (09:18→20:08)
[2016-06-23] MEDS: CITALOPRAM 20 MG TAB PO SCH (09:18)
--- NOTE | 2016-06-23 09:33 | PDINTPN ---
Maintenance Construction Helper Progress Note Assessment/Plan: Assessment/Plan: * Respiratory failure-patient stable off mechanical ventilation. -continue aggressive pulmonary toilet -wean FiO2 as tolerated * Status post aortic valve replacement, mitral valve replacement, tricuspid annuloplasty, and Maze procedure. * Morbid obesity * Obstructive sleep apnea * Hypertension * Hyperlipidemia * Mitochondrial myopathy * PT/OT Subjective: Resting comfortably. Dangled on the side of the bed per PT today without problem. Objective: Vital Signs Temp Pulse Resp BP Pulse Ox 38.0 C 70 22 H 124/52 H 95 06/23/16 09:00 06/23/16 09:00 06/23/16 09:00 06/23/16 09:00 06/23/16 09:00 Laboratory Results 06/23/16 05:00 06/23/16 05:00 06/22/16 06/23/16 06/24/16 05:59 05:59 05:59 Intake Total 400 2153 250 Output Total 1200 1523 150 Balance -800 630 100 PT 13.8 SEC (12.0-15.0) 06/21/16 11:45 INR 1.07 (0.83-1.16) 06/21/16 11:45 Laboratory Results 06/23/16 05:00 06/23/16 05:00 06/23/16 05:00 Puncture Site LEFT FEMORAL Patient Temperature 37.9 DEGREES DEGREES pCO2 36 mmHg mmHg (34 - 38) pO2 76 mmHg H mmHg (65 - 75) Total CO2 21 mEq/L L mEq/L (23 - 27) ABG pH 7.36 (7.35 - 7.45) ABG O2 Saturation 94 % % (92 - 95) ABG Base Excess -4.6 mEq/L L mEq/L (-2.5 - 2.5) Total O2 Concentration 3.0 LITERS LITERS Chest x-ray reviewed by myself shows endotracheal tube has been removed and pulmonary edema has improved as well Physical Exam - Physical Exam General Appearance: alert, no apparent distress EENT: PERRL/EOMI, normal ENT inspection, pharynx normal, TMs normal Neck: non-tender, full range of motion, supple, normal inspection Respiratory: crackles (Few base), No respiratory distress, No wheezing, No prolonged expiration Cardiac/Chest: normal peripheral pulses, regular rate, rhythm, systolic murmur Abdomen: normal bowel sounds, non-tender, soft Pelvic Exam: deferred Rectal: deferred Skin: normal color, warm/dry Extremities: normal range of motion, non-tender, normal inspection, normal capillary refill Neuro/Psych: alert ICD10 Worksheet Patient Problems: Problems Problem Status Onset S/P AVR (aortic valve replacement) Acute S/P TVR (tricuspid valve repair) Acute S/P ablation of atrial fibrillation Acute S/P mitral valve replacement with bioprosthetic valve Acute Aortic regurgitation Chronic Mitral regurgitation Chronic Morbid obesity Chronic Tricuspid insufficiency Chronic Atrial fibrillation with rapid ventricular response Acute Cardiomyopathy Acute
[2016-06-23] MEDS ORDERED: NALOXONE HCL 0.4 MG/ML INJ ONE (15:02)
[2016-06-23] MEDS: OXYCODONE/APAP 5/325 TAB PO PRN (18:05)
[2016-06-23 18:28] LABS: ANION GAP 10 mEq/L (8-16); CARBON DIOXIDE 23 mEq/l (22-31); CHLORIDE 111 mEq/L (97-110); CREATININE 1.3 mg/dL (0.6-1.0); GLOMERULAR FILTRATION RATE 41; GLUCOSE 117 mg/dL (70-100); POTASSIUM 4.4 mEq/L (3.5-5.2); SODIUM 144 mEq/L (134-144)
[2016-06-24] MEDS: OXYCODONE/APAP 5/325 TAB PO PRN ×3 (00:28→10:15)
[2016-06-24 04:35] LABS: % IMMATURE GRANULYOCYTES 1.1 % (0.0-1.1); ABSOLUTE IMMATURE GRANULOCYTES 0.15 10^3/uL (0.00-0.10); ADD DIFF? NO; ADD MORPH? NO; ADD SCAN? NO; ATYPICAL LYMPHOCYTE FLAG 0 (0-99); FRAGMENT RBC FLAG 0 (0-99); HEMATOCRIT 29.2 % (38.0-47.0); HEMOGLOBIN 9.1 g/dL (12.6-16.3); LEFT SHIFT FLG 40 (0-99); LIPEMIA HEMOLYSIS FLAG 80 (0-99); MEAN CELL HEMOGLOBIN 25.6 pg (27.9-34.1); MEAN CELL HEMOGLOBIN CONCENTR. 31.2 g/dL (32.4-36.7); MEAN CELL VOLUME 82.3 fL (81.5-99.8); MEAN PLATELET VOLUME 11.2 fL (8.7-11.7); PLATELET CLUMPS FLAG 10 (0-99); PLATELET COUNT 79 10^3/uL (150-400); RED BLOOD CELL COUNT 3.55 10^6/uL (4.18-5.33); RED CELL DISTRIBUTION WIDTH 15.9 % (11.5-15.2)
[2016-06-24 04:53] LABS: ANION GAP 10 mEq/L (8-16); CALCIUM 8.9 mg/dL (8.5-10.4); CARBON DIOXIDE 24 mEq/l (22-31); CHLORIDE 113 mEq/L (97-110); GLOMERULAR FILTRATION RATE 56; GLUCOSE 123 mg/dL (70-100); POTASSIUM 4.2 mEq/L (3.5-5.2); SODIUM 147 mEq/L (134-144)
[2016-06-24] MEDS: HEPARIN 5,000 UNIT/0.5 ML SYR SC SCH ×3 (06:19→21:24)
[2016-06-24] MEDS ORDERED: FUROSEMIDE 20 MG/2 ML VIAL IVP ONE (08:00)
--- NOTE | 2016-06-24 08:27 | SOAPPROG ---
SOAP Progress Note Assessment/Plan: Assessment: POD#2 AVR #21 Magna bioprosthesis, chordal sparing MVR #25 Magna bioprosthesis, TVA #26 ring, full Carr-Maze IV Sx severe multivalvular insufficiency - s/p tissue AVR, tissue MVR, and TVA. Antithrombotic prophylaxis with Coumadin. Target INR 2-3. Duration 3 mo if rhythm stable. Longstanding PAF/chronic anticoagulation - Hx AT, pacer dependence s/p AV carmelita ablation. PPM rate increased to 85 post Carr-Maze IV. Antithrombotic prophylaxis with Coumadin as per protocol. Likely can revert to Eliquis once recovered from surgery. Valvular cardiomyopathy with chronic class III dCHF - Weaned from CPB in SR on 10 mcgs of dobutamine with preserved LV/RV function. Extubated in ICU. Transitioned to dopa for optimized hemodynamics while intrinsic PPM rate at 60. Successfully weaned off vasoactive support with stable renal function. Initiation of heart failure regimen in staggered fashion when appropriate. Acute blood loss anemia with preoperative anemia - Stable s/p 3U PRBCs. No evidence active bleeding. Care with VTE prophylaxis while plts suppressed. Hx HOCM/presence of AICD - Defibrillator reactivated yest. Morbid obesity - Rehab challenges anticipated. SNF vs inpt rehab likely. Plan: D/C morocho. D/C dopamine. Lasix 20mg IV x 1. Start coumadin. 2.5 mg today. Inc mobility and pulm toilet. Tx to PCU. 06/24/16 08:24 Subjective: Doing ok. Tolerating light diet. Improving mobility. Satisfactory analgesia. Objective: Vital Signs Temp Pulse Resp BP Pulse Ox 38.1 C 85 20 133/41 H 94 06/24/16 07:00 06/24/16 07:00 06/24/16 07:00 06/24/16 07:00 06/24/16 07:00 Laboratory Results 06/24/16 04:21 06/24/16 04:21 06/23/16 06/24/16 06/25/16 05:59 05:59 05:59 Intake Total 2153 1591.2 Output Total 1523 968 Balance 630 623.2 PT 13.8 SEC (12.0-15.0) 06/21/16 11:45 INR 1.07 (0.83-1.16) 06/21/16 11:45 Robust BPs with faster/paced HR and low dose dopa. Moderate suppl O2 req. Os>Is. CXR-> mild pulm vasc congestion, tiny rt pl eff, bibasilar atelectasis. No sig CTOP. Labs ok. Physical Exam - Physical Exam General Appearance: alert, no apparent distress Respiratory: crackles (bases), other (blakes x 3 to bulb suction, thin serosang drainage) Cardiac/Chest: regular rate, rhythm (paced), other (Sternum grossly stable. Sternotomy CDI. Small hematoma suprasternal notch.) Abdomen: normal bowel sounds, non-tender, soft Skin: warm/dry Extremities: swelling (1+ gen) ICD10 Worksheet Patient Problems: Problems Problem Status Onset Acute blood loss anemia Acute S/P AVR (aortic valve replacement) Acute S/P TVR (tricuspid valve repair) Acute S/P ablation of atrial fibrillation Acute S/P mitral valve replacement with bioprosthetic valve Acute Aortic regurgitation Chronic CHF (congestive heart failure), NYHA class III Chronic Mitral regurgitation Chronic Morbid obesity Chronic Tricuspid insufficiency Chronic Atrial fibrillation with rapid ventricular response Acute Cardiomyopathy Acute
--- NOTE | 2016-06-24 08:45 | WOCRNPDOC ---
WOCRN Advanced Assessment Note - Skin Integrity Problem, Advanced Assess Right Groin Dressing Type: Open to Air Flakita Wound Swelling: Mild Wound Bed Color: Red Site Odor: Slight Skin Integrity Problem Comment: Shallow, linear wound noted in base of pannus crease, w/ erythema and scattered small satellite lesions mirrored on either side of the pannus fold, consistent w/ intertriginous dermatitis from moisture, friction, and yeast. Patient reports this is an ongoing issue for which she has applied anti-fungal powders and creams. Advised placement of Interdry sheet in pannus crease to mitigate moisture and friction. Silver in the sheet will also help reduce yeast growth. rim roller operator Nikki to apply using supply from ICU. Left Groin Dressing Type: Mepilex Transfer, Other Other Dressing Type: 1 piece of Thrombix applied over puncture site Dressing Description: Shadowed Exudate Amount: Scant Exudate Color: Red Exudate Characteristic(s): Bloody, Dried Integumentary Issue Intervention: Dressing Removed Flakita Wound Tissue: Erythema, Raw, Denuded Flakita Wound Swelling: Mild Wound Bed Color: Red Site Odor: Slight (yeast) Skin Integrity Problem Comment: Shallow, linear opening in base of pannus crease w/ mirrored erythema and scattered lesions on pannus folds, consistent w / intertriginous dermatitis. In addition, patient has a puncture site in this crease, which was covered w/ a hemostatic dressing and Mepilex Transfer r/t bleeding. No additional bleeding noted at this time, pinpoint, intact scab over site. Patient c/o tenderness when site assessed. Advised using Interdry sheets to mitigate moisture and friction. rim roller operator Nikki to apply.
--- NOTE | 2016-06-24 08:56 | PDINTPN ---
Food Counselor Progress Note Assessment/Plan: Assessment/Plan: * Respiratory failure-patient stable off mechanical ventilation. -continue aggressive pulmonary toilet -wean FiO2 as tolerated * Status post aortic valve replacement, mitral valve replacement, tricuspid annuloplasty, and Maze procedure. * Pain-fairly well controlled * Morbid obesity * Obstructive sleep apnea * Hypertension * Hyperlipidemia * Mitochondrial myopathy * PT/OT-start ambulation today Subjective: Sitting up in chair. Currently working with physical therapy. Patient states that her pain is tolerable and she does not feel breathless. Objective: Vital Signs Temp Pulse Resp BP Pulse Ox 38.1 C 85 20 120/55 L 94 06/24/16 07:00 06/24/16 08:00 06/24/16 08:00 06/24/16 08:00 06/24/16 08:00 Laboratory Results 06/24/16 04:21 06/24/16 04:21 06/23/16 06/24/16 06/25/16 05:59 05:59 05:59 Intake Total 2153 1591.2 Output Total 1523 968 45 Balance 630 623.2 -45 PT 13.8 SEC (12.0-15.0) 06/21/16 11:45 INR 1.07 (0.83-1.16) 06/21/16 11:45 Physical Exam - Physical Exam General Appearance: alert, no apparent distress EENT: PERRL/EOMI, normal ENT inspection, pharynx normal, TMs normal Neck: non-tender, full range of motion, supple, normal inspection Respiratory: crackles (Few basilar), No respiratory distress, No wheezing, No prolonged expiration Cardiac/Chest: normal peripheral pulses, regular rate, rhythm, systolic murmur Peripheral Pulses: 2+: carotid (R), carotid (L), femoral (R), femoral (L), dorsalis-pedis (R), dorsalis-pedis (L) Abdomen: normal bowel sounds, non-tender, soft Pelvic Exam: deferred Rectal: deferred Skin: normal color, warm/dry Lymphatic: no adenopathy Extremities: normal range of motion, non-tender, normal inspection, normal capillary refill Neuro/Psych: alert ICD10 Worksheet Patient Problems: Problems Problem Status Onset Acute blood loss anemia Acute S/P AVR (aortic valve replacement) Acute S/P TVR (tricuspid valve repair) Acute S/P ablation of atrial fibrillation Acute S/P mitral valve replacement with bioprosthetic valve Acute Aortic regurgitation Chronic CHF (congestive heart failure), NYHA class III Chronic Mitral regurgitation Chronic Morbid obesity Chronic Tricuspid insufficiency Chronic Atrial fibrillation with rapid ventricular response Acute Cardiomyopathy Acute
[2016-06-24] MEDS: DOCUSATE SODIUM 100 MG CAP PO SCH ×2 (09:17→21:23)
[2016-06-24] MEDS: CITALOPRAM 20 MG TAB PO SCH (09:17)
[2016-06-24] MEDS: NYSTATIN 100000 UNIT TP SCH (10:14)
[2016-06-24] MEDS ORDERED: BUMETANIDE 1 MG/4 ML VIAL IVP ONE (11:20)
[2016-06-24 13:47] LABS: ANION GAP 8 mEq/L (8-16); CALCIUM 8.7 mg/dL (8.5-10.4); CARBON DIOXIDE 24 mEq/l (22-31); CHLORIDE 111 mEq/L (97-110); CREATININE 1.2 mg/dL (0.6-1.0); GLOMERULAR FILTRATION RATE 45; GLUCOSE 105 mg/dL (70-100); POTASSIUM 4.2 mEq/L (3.5-5.2); SODIUM 143 mEq/L (134-144)
[2016-06-24] MEDS: NS 1,000 ML IV SCH (15:27)
[2016-06-24] MEDS ORDERED: WARFARIN SODIUM 2.5 MG TAB PO ONE (16:00)
--- NOTE | 2016-06-24 20:01 | ECHO ---
[id number] + + [address] : : [place] [address] : : [phone] + + Adult Echocardiographic Report + + :Name: TIGIST DE PAZ Date: 06/24/2016 05:37 PM : : Hospital Admission Number: [id number] Loc ation: 243: :: 1950 Gender: Female : :Age: 66 yrs Race: WH,White : :Reason For Study: s/p AVR #21 Magna, MVR #25 Magna, TVA #26 ring : :History: H/O HOCM with prior alcohol septal ablation, pacer : : : + + Doppler Measurements \T\ Calculations MV E max king: MV V2 max: Ao mean PG: LV V1 mean P.6 cm/sec 156.1 cm/sec 7.9 mmHg 10.6 mmHg MV dec time: MV max P.7 mmHgAo V2 mean: LV V1 mean: 0.25 sec MV V2 mean: 125.1 cm/sec 140.9 cm/sec 93.8 cm/sec Ao V2 VTI: 26.4 cm LV V1 VTI: 38.7 cm MV mean P.4 mmHg MV V2 VTI: 30.7 cm PA V2 max: PI end-d king: TR max king: 97.7 cm/sec 112.9 cm/sec 262.0 cm/sec PA max P.8 mmHg TR max P.5 mmHg Left Ventricle The left ventricle is normal in size. Visually there appears to be mild asymmetric LVH. EF appears to be normal by visual assessment. Regional wall motion abnormalities cannot be excluded due to limited visualization. Right Ventricle The right ventricle is normal size. There is a pacemaker lead in the right ventricle. Atria The left atrium is mildly dilated. Right atrial size is normal. The interatrial septum is intact with no evidence for an atrial septal defect. Mitral Valve There is no mitral regurgitation noted. There is a #25 Magna MVR. The prosthetic mitral valve is well-seated. Tricuspid Valve There is moderate tricuspid regurgitation. There is a TVA #25 ring. Aortic Valve Normal aortic velocities. There is a #21 Magna AVR. The prosthetic aortic valve is well-seated. Pulmonic Valve The pulmonic valve is not well visualized. There is no pulmonic valvular stenosis. Trace pulmonic valvular regurgitation. Great Vessels The aortic root is normal size. Pericardium/Pleural There is a fat pad seen. Small pericardial effusion. There are no echocardiographic indications of cardiac tamponade. Conclusion The study was technically difficult. The study was technically limited. Study limited by body habitus, surgical dressings, and restricted mobility. Visually there appears to be mild asymmetric LVH. EF appears to be normal by visual assessment. The left atrium is mildly dilated. There is a pacemaker lead in the right ventricle. There is a #25 Magna MVR. The prosthetic mitral valve is well-seated. There is a TVA #25 ring. There is moderate tricuspid regurgitation. There is a #21 Magna AVR. The prosthetic aortic valve is well-seated. Trace pulmonic valvular regurgitation. Small pericardial effusion. There are no echocardiographic indications of cardiac tamponade. Final Reading Physician: Kirti Fields signed on 06/24/2016 07:59 PM Ordering Physician: Ponce Barry Performed By: Asuncion Cleveland
[2016-06-24] MEDS: PANTOPRAZOLE SODIUM 40 MG TAB PO SCH (21:23)
[2016-06-25] MEDS: OXYCODONE/APAP 5/325 TAB PO PRN ×2 (00:20→20:46)
[2016-06-25] MEDS: NS 1,000 ML IV SCH (01:04)
[2016-06-25 05:02] LABS: % IMMATURE GRANULYOCYTES 1.1 % (0.0-1.1); ABSOLUTE IMMATURE GRANULOCYTES 0.13 10^3/uL (0.00-0.10); ADD DIFF? NO; ADD MORPH? NO; ADD SCAN? NO; ATYPICAL LYMPHOCYTE FLAG 0 (0-99); FRAGMENT RBC FLAG 0 (0-99); HEMATOCRIT 27.9 % (38.0-47.0); HEMOGLOBIN 8.4 g/dL (12.6-16.3); LEFT SHIFT FLG 0 (0-99); LIPEMIA HEMOLYSIS FLAG 80 (0-99); MEAN CELL HEMOGLOBIN 25.8 pg (27.9-34.1); MEAN CELL HEMOGLOBIN CONCENTR. 30.1 g/dL (32.4-36.7); MEAN CELL VOLUME 85.6 fL (81.5-99.8); MEAN PLATELET VOLUME 10.3 fL (8.7-11.7); PLATELET CLUMPS FLAG 0 (0-99); RED BLOOD CELL COUNT 3.26 10^6/uL (4.18-5.33); RED CELL DISTRIBUTION WIDTH 16.5 % (11.5-15.2)
[2016-06-25 05:03] LABS: PLATELET COUNT 49 10^3/uL (150-400)
[2016-06-25 05:12] LABS: ANION GAP 7 mEq/L (8-16); CALCIUM 8.4 mg/dL (8.5-10.4); CARBON DIOXIDE 26 mEq/l (22-31); CHLORIDE 111 mEq/L (97-110); CREATININE 0.9 mg/dL (0.6-1.0); GLOMERULAR FILTRATION RATE > 60; GLUCOSE 103 mg/dL (70-100); POTASSIUM 3.9 mEq/L (3.5-5.2); SODIUM 144 mEq/L (134-144)
[2016-06-25 05:25] LABS: PLATELET ESTIMATE DECREASED (ADEQ)
[2016-06-25 05:36] LABS: INR 2.13 (0.83-1.16)
[2016-06-25] MEDS: HEPARIN 5,000 UNIT/0.5 ML SYR SC SCH (05:47)
--- NOTE | 2016-06-25 07:35 | SOAPPROG ---
SOAP Progress Note Assessment/Plan: POD #3: AV replacement #21 Magna bioprosthesis, MV replacement #25 Magna bioprosthesis with chordal sparing, TV annuloplasty #26 ring, full Carr-Maze IV Recent events: 2 mcgs dopamine/IVF started yesterday for hypotension with 1U PRBC transfused. SBP 150-170 overnight with stable renal function this AM. Post- op 2D ECHO performed 06/24 revealed stable valvular function with good LV/RV function. Severe AI, severe MR, moderate TR s/p AVR, MVR, TVA - CT at removal criteria - will remove - SCDs for DVT prophylaxis - BB when appropriate Longstanding PAF s/p Carr-Maze IV - Coumadin for INR goal 2-3 Class III CHF with normal EF, diastolic dysfunction, and valvular cardiomyopathy - BB/ACEi/Lasix when appropriate Symptomatic post-operative acute blood loss anemia with preoperative anemia s/p multiple PRBC transfusions - Monitor, transfuse prn Presence of AICD - Defibrillator function turned on post-op and set to AV pace at 85 Morbid obesity - PT/OT - Aggressive pulmonary toilet Disposition - Transfer to floor today - Anticipate SNF vs rehab upon discharge Subjective: Feels tired. Didn't sleep overnight. Denies CP/SOB. Objective: Vital Signs Temp Pulse Resp BP Pulse Ox 36.8 C 85 21 H 160/90 H 96 06/24/16 14:00 06/25/16 07:22 06/25/16 07:22 06/25/16 07:22 06/25/16 07:22 Laboratory Results 06/25/16 04:50 06/25/16 04:50 06/24/16 06/25/16 06/26/16 05:59 05:59 05:59 Intake Total 1591.2 2097.9 Output Total 968 1225 Balance 623.2 872.9 PT 24.0 SEC (12.0-15.0) H 06/25/16 04:50 INR 2.13 (0.83-1.16) H 06/25/16 04:50 Physical Exam - Physical Exam General Appearance: no apparent distress, obese EENT: normal ENT inspection Neck: normal inspection Respiratory: No respiratory distress Cardiac/Chest: other (AV paced @ 85) Abdomen: non-tender, soft, No distended Skin: normal color, warm/dry Extremities: No pedal edema Neuro/Psych: no motor/sensory deficits, alert, normal mood/affect, oriented x 3 ICD10 Worksheet Patient Problems: Problems Problem Status Onset Acute blood loss anemia Acute S/P AVR (aortic valve replacement) Acute S/P TVR (tricuspid valve repair) Acute S/P ablation of atrial fibrillation Acute S/P mitral valve replacement with bioprosthetic valve Acute Aortic regurgitation Chronic CHF (congestive heart failure), NYHA class III Chronic Mitral regurgitation Chronic Morbid obesity Chronic Tricuspid insufficiency Chronic Atrial fibrillation with rapid ventricular response Acute Cardiomyopathy Acute
--- NOTE | 2016-06-25 08:49 | PDINTPN ---
Furniture Painter Progress Note Assessment/Plan: Assessment/Plan: * Respiratory failure-patient stable off mechanical ventilation. -continue aggressive pulmonary toilet -wean FiO2 as tolerated * Status post aortic valve replacement, mitral valve replacement, tricuspid annuloplasty, and Maze procedure. * Pain-fairly well controlled * Morbid obesity * Obstructive sleep apnea * Hypertension-blood pressure controlled * Hyperlipidemia * Mitochondrial myopathy * PT/OT-start ambulation today Overall markedly improved. Subjective: Patient is much more awake and alert today. She states she has better energy. There is no shortness of breath cough or production of sputum. She is looking forward to working with physical therapy today Objective: Vital Signs Temp Pulse Resp BP Pulse Ox 36.8 C 85 21 H 160/90 H 96 06/24/16 14:00 06/25/16 07:22 06/25/16 07:22 06/25/16 07:22 06/25/16 07:22 Laboratory Results 06/25/16 04:50 06/25/16 04:50 06/24/16 06/25/16 06/26/16 05:59 05:59 05:59 Intake Total 1591.2 2097.9 Output Total 968 1225 Balance 623.2 872.9 PT 24.0 SEC (12.0-15.0) H 06/25/16 04:50 INR 2.13 (0.83-1.16) H 06/25/16 04:50 Physical Exam - Physical Exam General Appearance: alert, no apparent distress EENT: PERRL/EOMI, normal ENT inspection Neck: non-tender, full range of motion, supple, normal inspection, other (TLC site clean and dry) Respiratory: crackles (Few basilar), No respiratory distress, No wheezing Cardiac/Chest: normal peripheral pulses, regular rate, rhythm, systolic murmur Peripheral Pulses: 2+: carotid (R), carotid (L), femoral (R), femoral (L), dorsalis-pedis (R), dorsalis-pedis (L) Abdomen: normal bowel sounds, non-tender, soft Pelvic Exam: deferred Rectal: deferred Skin: normal color, warm/dry Extremities: normal range of motion, non-tender, normal inspection, normal capillary refill Neuro/Psych: no motor/sensory deficits, alert, normal mood/affect, oriented x 3 ICD10 Worksheet Patient Problems: Problems Problem Status Onset Acute blood loss anemia Acute S/P AVR (aortic valve replacement) Acute S/P TVR (tricuspid valve repair) Acute S/P ablation of atrial fibrillation Acute S/P mitral valve replacement with bioprosthetic valve Acute Aortic regurgitation Chronic CHF (congestive heart failure), NYHA class III Chronic Mitral regurgitation Chronic Morbid obesity Chronic Tricuspid insufficiency Chronic Atrial fibrillation with rapid ventricular response Acute Cardiomyopathy Acute
[2016-06-25] MEDS: CITALOPRAM 20 MG TAB PO SCH (09:31)
[2016-06-25] MEDS: PANTOPRAZOLE SODIUM 40 MG TAB PO SCH ×2 (09:31→20:44)
[2016-06-25] MEDS: DOCUSATE SODIUM 100 MG CAP PO SCH ×2 (09:31→20:44)
[2016-06-25] MEDS: NYSTATIN 100000 UNIT TP SCH (11:05)
[2016-06-26 04:56] LABS: HEMATOCRIT 32.8 % (38.0-47.0); HEMOGLOBIN 10.1 g/dL (12.6-16.3); MEAN CELL HEMOGLOBIN 26.4 pg (27.9-34.1); MEAN CELL HEMOGLOBIN CONCENTR. 30.8 g/dL (32.4-36.7); MEAN CELL VOLUME 85.6 fL (81.5-99.8); RED BLOOD CELL COUNT 3.83 10^6/uL (4.18-5.33); RED CELL DISTRIBUTION WIDTH 16.8 % (11.5-15.2)
[2016-06-26 05:03] LABS: INR 2.57 (0.83-1.16); PROTIME(PATIENT) 27.9 SEC (12.0-15.0)
[2016-06-26 05:23] LABS: ANION GAP 9 mEq/L (8-16); CALCIUM 8.8 mg/dL (8.5-10.4); CARBON DIOXIDE 23 mEq/l (22-31); CHLORIDE 107 mEq/L (97-110); CREATININE 0.8 mg/dL (0.6-1.0); GLOMERULAR FILTRATION RATE > 60; GLUCOSE 100 mg/dL (70-100); POTASSIUM 4.2 mEq/L (3.5-5.2); SODIUM 139 mEq/L (134-144)
--- NOTE | 2016-06-26 08:09 | SOAPPROG ---
SOAP Progress Note Assessment/Plan: POD #4: AV replacement #21 Magna bioprosthesis, MV replacement #25 Magna bioprosthesis with chordal sparing, TV annuloplasty #26 ring, full Carr-Maze IV Severe AI, severe MR, moderate TR s/p AVR, MVR, TVA - SCDs for DVT prophylaxis - BB when appropriate Longstanding PAF s/p Carr-Maze IV - Coumadin for INR goal 2-3 Class III CHF with normal EF, diastolic dysfunction, and valvular cardiomyopathy - BB/ACEi/Lasix when appropriate Symptomatic post-operative acute blood loss anemia with preoperative anemia s/p multiple PRBC transfusions - Stable, monitor Presence of AICD - Defibrillator function turned on post-op and set to AV pace at 85 Morbid obesity - PT/OT - Aggressive pulmonary toilet Disposition - Anticipate SNF vs rehab upon discharge Subjective: Feels well. Denies CP/SOB. Objective: Vital Signs Temp Pulse Resp BP Pulse Ox 36.7 C 68 16 138/112 H 98 06/26/16 04:00 06/26/16 04:00 06/26/16 04:00 06/26/16 04:00 06/26/16 04:00 Laboratory Results 06/26/16 04:30 06/26/16 04:30 06/25/16 06/26/16 06/27/16 05:59 05:59 05:59 Intake Total 2097.9 640 Output Total 1225 300 Balance 872.9 340 PT 27.9 SEC (12.0-15.0) H 06/26/16 04:30 INR 2.57 (0.83-1.16) H 06/26/16 04:30 Physical Exam - Physical Exam General Appearance: WD/WN, alert, no apparent distress, obese EENT: normal ENT inspection Neck: normal inspection Respiratory: No respiratory distress Cardiac/Chest: regular rate, rhythm Abdomen: non-tender, soft, No distended Skin: normal color, warm/dry Extremities: pedal edema (trace) Neuro/Psych: no motor/sensory deficits, alert, normal mood/affect, oriented x 3 ICD10 Worksheet Patient Problems: Problems Problem Status Onset Acute blood loss anemia Acute S/P AVR (aortic valve replacement) Acute S/P TVR (tricuspid valve repair) Acute S/P ablation of atrial fibrillation Acute S/P mitral valve replacement with bioprosthetic valve Acute Aortic regurgitation Chronic CHF (congestive heart failure), NYHA class III Chronic Mitral regurgitation Chronic Morbid obesity Chronic Tricuspid insufficiency Chronic Atrial fibrillation with rapid ventricular response Acute Cardiomyopathy Acute
[2016-06-26] MEDS: DOCUSATE SODIUM 100 MG CAP PO SCH ×2 (10:26→22:00)
[2016-06-26] MEDS: PANTOPRAZOLE SODIUM 40 MG TAB PO SCH ×2 (10:26→22:00)
[2016-06-26] MEDS: CITALOPRAM 20 MG TAB PO SCH (10:26)
[2016-06-26] MEDS: NYSTATIN 100000 UNIT TP SCH (10:28)
[2016-06-26] MEDS: LISINOPRIL 5 MG TAB PO SCH (12:44)
[2016-06-26] MEDS: OXYCODONE/APAP 5/325 TAB PO PRN (22:00)
[2016-06-26] MEDS: ATORVASTATIN CALCIUM 10 MG TAB PO SCH (22:08)
[2016-06-27 06:11] LABS: INR 1.73 (0.83-1.16); PROTIME(PATIENT) 20.3 SEC (12.0-15.0)
--- NOTE | 2016-06-27 07:46 | SOAPPROG ---
SOAP Progress Note Assessment/Plan: POD #5: AV replacement #21 Magna bioprosthesis, MV replacement #25 Magna bioprosthesis with chordal sparing, TV annuloplasty #26 ring, full Carr-Maze IV Severe AI, severe MR, moderate TR s/p AVR, MVR, TVA - BB deferred as higher HR needed for better hemodynamics - SCDs/Coumadin for DVT prophylaxis Longstanding PAF s/p Carr-Maze IV - Coumadin for INR goal 2-3, duration at least 3 months Class III CHF with normal EF, diastolic dysfunction, and valvular cardiomyopathy - Continue ACEi - Torsemide started this AM Symptomatic post-operative acute blood loss anemia with preoperative anemia s/p multiple PRBC transfusions - Stable, monitor Presence of AICD - Defibrillator function turned on post-op and PPM set to AV pace at 85 Morbid obesity - PT/OT - Aggressive pulmonary toilet Disposition - Anticipate SNF vs rehab upon discharge 06/27/16 09:32 Subjective: No complaints this AM. Objective: Vital Signs Temp Pulse Resp BP Pulse Ox 36.6 C 85 20 138/78 H 100 06/27/16 04:00 06/27/16 04:00 06/27/16 04:00 06/27/16 04:00 06/27/16 04:00 Laboratory Results 06/27/16 05:40 06/26/16 04:30 06/26/16 06/27/16 06/28/16 05:59 05:59 05:59 Intake Total 640 1610 Output Total 300 480 Balance 340 1130 PT 20.3 SEC (12.0-15.0) H 06/27/16 05:40 INR 1.73 (0.83-1.16) H 06/27/16 05:40 Physical Exam - Physical Exam General Appearance: WD/WN, alert, no apparent distress, obese EENT: normal ENT inspection Neck: normal inspection Respiratory: No respiratory distress Cardiac/Chest: other (AV paced at 85) Abdomen: non-tender, soft, No distended Skin: normal color, warm/dry Extremities: pedal edema Neuro/Psych: no motor/sensory deficits, alert, normal mood/affect, oriented x 3 ICD10 Worksheet Patient Problems: Problems Problem Status Onset Acute blood loss anemia Acute S/P AVR (aortic valve replacement) Acute S/P TVR (tricuspid valve repair) Acute S/P ablation of atrial fibrillation Acute S/P mitral valve replacement with bioprosthetic valve Acute Aortic regurgitation Chronic CHF (congestive heart failure), NYHA class III Chronic Mitral regurgitation Chronic Morbid obesity Chronic Tricuspid insufficiency Chronic Atrial fibrillation with rapid ventricular response Acute Cardiomyopathy Acute
[2016-06-27] MEDS ORDERED: FUROSEMIDE 20 MG/2 ML VIAL IVP ONE (07:52)
[2016-06-27] MEDS: PANTOPRAZOLE SODIUM 40 MG TAB PO SCH ×2 (08:53→21:29)
[2016-06-27] MEDS: POTASSIUM CL 20 MEQ TAB PO SCH ×2 (08:53→21:29)
[2016-06-27] MEDS: CITALOPRAM 20 MG TAB PO SCH (08:54)
[2016-06-27] MEDS: TORSEMIDE 20 MG TAB PO SCH ×2 (08:54→21:28)
[2016-06-27] MEDS: DOCUSATE SODIUM 100 MG CAP PO SCH ×2 (08:54→21:28)
[2016-06-27] MEDS: LISINOPRIL 5 MG TAB PO SCH (08:54)
[2016-06-27] MEDS: traMADol 50 MG TAB PO PRN (09:07)
[2016-06-27] MEDS: HYDROCODONE/APAP 5/325 TAB PO PRN (11:23)
[2016-06-27] MEDS: NYSTATIN 100000 UNIT TP SCH (11:24)
[2016-06-27 11:30] LABS: HEPARIN INDUCED ANTIBODY Negative (Negative); REACTIVITY 6 % (<20)
[2016-06-27] MEDS: ACETAMINOPHEN 500 MG TAB PO PRN (13:35)
[2016-06-27] MEDS ORDERED: WARFARIN SODIUM 1 MG TAB PO ONE (16:00)
[2016-06-27] MEDS ORDERED: WARFARIN SODIUM 2.5 MG TAB PO ONE (16:00)
[2016-06-27 17:12] LABS: POTASSIUM 3.8 mEq/L (3.5-5.2)
[2016-06-27] MEDS: ATORVASTATIN CALCIUM 10 MG TAB PO SCH (21:28)
[2016-06-27] MEDS: OXYCODONE/APAP 5/325 TAB PO PRN (21:29)
[2016-06-28] MEDS: OXYCODONE/APAP 5/325 TAB PO PRN (04:11)
[2016-06-28 04:39] LABS: HEMATOCRIT 31.1 % (38.0-47.0); HEMOGLOBIN 9.7 g/dL (12.6-16.3); MEAN CELL HEMOGLOBIN 26.4 pg (27.9-34.1); MEAN CELL HEMOGLOBIN CONCENTR. 31.2 g/dL (32.4-36.7); MEAN CELL VOLUME 84.5 fL (81.5-99.8); RED BLOOD CELL COUNT 3.68 10^6/uL (4.18-5.33)
[2016-06-28 04:45] LABS: ANION GAP 12 mEq/L (8-16); CALCIUM 8.4 mg/dL (8.5-10.4); CARBON DIOXIDE 22 mEq/l (22-31); CHLORIDE 105 mEq/L (97-110); CREATININE 0.8 mg/dL (0.6-1.0); GLOMERULAR FILTRATION RATE > 60; GLUCOSE 112 mg/dL (70-100); POTASSIUM 3.7 mEq/L (3.5-5.2); SODIUM 139 mEq/L (134-144)
[2016-06-28 04:55] LABS: INR 1.55 (0.83-1.16); PROTIME(PATIENT) 18.6 SEC (12.0-15.0)
[2016-06-28] MEDS: ACETAMINOPHEN 500 MG TAB PO PRN ×2 (07:39→16:54)
[2016-06-28] MEDS: LISINOPRIL 5 MG TAB PO SCH (07:40)
[2016-06-28] MEDS ORDERED: POTASSIUM CL 20 MEQ TAB PO ONE (09:04)
--- NOTE | 2016-06-28 09:05 | SOAPPROG ---
SOAP Progress Note Assessment/Plan: POD #6: AV replacement #21 Magna bioprosthesis, MV replacement #25 Magna bioprosthesis with chordal sparing, TV annuloplasty #26 ring, full Carr-Maze IV Severe AI, severe MR, moderate TR s/p AVR, MVR, TVA - BB deferred as higher HR needed for better hemodynamics - SCDs/Coumadin for DVT prophylaxis Longstanding PAF s/p Carr-Maze IV - Coumadin for INR goal 2-3, duration at least 3 months Class III CHF with normal EF, diastolic dysfunction, and valvular cardiomyopathy - Continue ACEi, Torsemide Symptomatic post-operative acute blood loss anemia with preoperative anemia s/p multiple PRBC transfusions - Stable, monitor Presence of AICD - Defibrillator function turned on post-op and PPM set to AV pace at 85 Morbid obesity - PT/OT - Aggressive pulmonary toilet Disposition - Anticipate SNF vs rehab Monday Subjective: up all night peeing, denies CP/SOB Objective: Vital Signs Temp Pulse Resp BP Pulse Ox 36.7 C 85 18 130/72 H 90 L 06/28/16 07:30 06/28/16 07:30 06/28/16 07:30 06/28/16 07:40 06/28/16 07:30 Laboratory Results 06/28/16 04:20 06/28/16 04:20 06/27/16 06/28/16 06/29/16 05:59 05:59 05:59 Intake Total 1610 600 Output Total 480 5450 Balance 1130 -4850 PT 18.6 SEC (12.0-15.0) H 06/28/16 04:20 INR 1.55 (0.83-1.16) H 06/28/16 04:20 Physical Exam - Physical Exam General Appearance: WD/WN, alert, no apparent distress EENT: normal ENT inspection Neck: normal inspection Respiratory: No respiratory distress Cardiac/Chest: other (AV paced) Abdomen: non-tender, soft, No distended Skin: normal color, warm/dry Extremities: pedal edema Neuro/Psych: no motor/sensory deficits, alert, normal mood/affect, oriented x 3 ICD10 Worksheet Patient Problems: Problems Problem Status Onset Acute blood loss anemia Acute S/P AVR (aortic valve replacement) Acute S/P TVR (tricuspid valve repair) Acute S/P ablation of atrial fibrillation Acute S/P mitral valve replacement with bioprosthetic valve Acute Aortic regurgitation Chronic CHF (congestive heart failure), NYHA class III Chronic Mitral regurgitation Chronic Morbid obesity Chronic Tricuspid insufficiency Chronic Atrial fibrillation with rapid ventricular response Acute Cardiomyopathy Acute
[2016-06-28] MEDS: NYSTATIN 100000 UNIT TP SCH (10:36)
[2016-06-28] MEDS: CITALOPRAM 20 MG TAB PO SCH (10:36)
[2016-06-28] MEDS: TORSEMIDE 20 MG TAB PO SCH ×2 (10:36→21:13)
[2016-06-28] MEDS: PANTOPRAZOLE SODIUM 40 MG TAB PO SCH ×2 (10:36→21:13)
[2016-06-28] MEDS: DOCUSATE SODIUM 100 MG CAP PO SCH ×2 (10:36→21:13)
[2016-06-28] MEDS: POTASSIUM CL 20 MEQ TAB PO SCH ×2 (10:37→21:12)
--- NOTE | 2016-06-28 14:07 | WOCRNPDOC ---
WOCRN Advanced Assessment Note - Skin Integrity Problem, Advanced Assess Right Groin Dressing Type: Interdry Dressing Description: Clean/Dry, Intact Exudate Amount: None (perspiration present in skin fold) Integumentary Issue Intervention: Visualized Under Dressing Flakita Wound Tissue: Erythema Flakita Wound Swelling: None Wound Bed Color: Alex Wound Bed Constitution: Smooth Tissue Wound Edges: Epithelizing Site Odor: None Skin Integrity Problem Comment: Presentation consistent with moisture- associated dermatitis. TIMOTHY Hackett using Interdry sheet as ordered. Left Groin Dressing Type: Interdry, Mepilex Transfer Dressing Description: Shadowed Exudate Amount: Scant Exudate Color: Reddish/Yellow Exudate Characteristic(s): Serosanguinous Integumentary Issue Intervention: Dressing Applied (Cavilon skin prep tp periwound, Aquacel Ag to opening, Mepilex Transfer, Interdry sheet), Dressing Changed Fl[place]ita Wound Tissue: Erythema, Raw, Painful/Tender Flakita Wound Swelling: None Wound Bed Color: Alex, Red Wound Bed Constitution: Smooth Tissue Wound Edges: Attached, Well Defined Site Odor: None Site Measurement - Head-to-Toe Length X Width X Depth (cm): proximal=0.3 x 4 x 0.1. distal=0.4 x 11 x 0.2 Skin Integrity Problem Comment: Raw-looking shallow, horizontal linear openings along pannus/groin folds, with appearance consistent with moisture-associated dermatitis. Moisture is most notable along the longer (distal) fold and wound surface. Cleansed with Carraklenz spray and a drain sponge for soft moisture- wicking and drying. Applied Cavilon to periwound; placed a strip of Aquacel Ag in contact with both openings; secured in place with Transfer foam, placed Interdry sheet between Transfer foam folds for wicking. Instructions to TIMOTHY Hackett.
[2016-06-28] MEDS ORDERED: WARFARIN SODIUM 2.5 MG TAB PO ONE (16:00)
[2016-06-28] MEDS ORDERED: WARFARIN SODIUM 3 MG TAB PO ONE (16:00)
[2016-06-28] MEDS: ATORVASTATIN CALCIUM 10 MG TAB PO SCH (21:12)
[2016-06-28] MEDS: HYDROCODONE/APAP 5/325 TAB PO PRN (23:32)
[2016-06-29 06:25] LABS: INR 1.86 (0.83-1.16); PROTIME(PATIENT) 21.5 SEC (12.0-15.0)
[2016-06-29 06:27] LABS: POTASSIUM 4.3 mEq/L (3.5-5.2)
--- NOTE | 2016-06-29 07:14 | SOAPPROG ---
SOAP Progress Note Assessment/Plan: POD #7: AV replacement #21 Magna bioprosthesis, MV replacement #25 Magna bioprosthesis with chordal sparing, TV annuloplasty #26 ring, full Carr-Maze IV Severe AI, severe MR, moderate TR s/p AVR, MVR, TVA - BB deferred as higher HR needed for better hemodynamics - SCDs/Coumadin for DVT prophylaxis Longstanding PAF s/p Carr-Maze IV - Coumadin for INR goal 2-3, duration at least 3 months Class III CHF with normal EF, diastolic dysfunction, and valvular cardiomyopathy - Continue ACEi, Torsemide Post-operative acute blood loss anemia with preoperative anemia, thrombocytopenia - HCT stable, monitor - Platelets trending higher, HIT negative, monitor Presence of AICD - Defibrillator function turned on post-op and PPM set to AV pace at 85 Morbid obesity - PT/OT - Aggressive pulmonary toilet Right knee pain - Will reach out to ortho today for possible joint injection to relieve pain Disposition - Anticipate SNF vs rehab Today 06/29/16 09:42 Subjective: Denies CP/SOB. Has right knee pain and has received injection in the past providing relief. Objective: Vital Signs Temp Pulse Resp BP Pulse Ox 36.7 C 85 18 126/80 H 97 06/29/16 03:53 06/29/16 03:53 06/29/16 03:53 06/29/16 03:53 06/29/16 03:53 Laboratory Results 06/28/16 04:20 06/29/16 05:55 06/28/16 06/29/16 06/30/16 05:59 05:59 05:59 Intake Total 600 820 Output Total 5450 2420 Balance -4850 -1600 PT 21.5 SEC (12.0-15.0) H 06/29/16 05:55 INR 1.86 (0.83-1.16) H 06/29/16 05:55 Physical Exam - Physical Exam General Appearance: WD/WN, alert, no apparent distress, obese EENT: normal ENT inspection Neck: normal inspection Respiratory: No respiratory distress Cardiac/Chest: other (AV paced) Abdomen: non-tender, soft, No distended Skin: normal color, warm/dry Extremities: pedal edema, inflammation, No swelling (right knee) Neuro/Psych: no motor/sensory deficits, alert, normal mood/affect, oriented x 3 ICD10 Worksheet Patient Problems: Problems Problem Status Onset Acute blood loss anemia Acute S/P AVR (aortic valve replacement) Acute S/P TVR (tricuspid valve repair) Acute S/P ablation of atrial fibrillation Acute S/P mitral valve replacement with bioprosthetic valve Acute Aortic regurgitation Chronic CHF (congestive heart failure), NYHA class III Chronic Mitral regurgitation Chronic Morbid obesity Chronic Tricuspid insufficiency Chronic Atrial fibrillation with rapid ventricular response Acute Cardiomyopathy Acute
[2016-06-29] MEDS: LISINOPRIL 5 MG TAB PO SCH (08:39)
[2016-06-29] MEDS: TORSEMIDE 20 MG TAB PO SCH ×3 (08:39→13:40)
[2016-06-29] MEDS: POTASSIUM CL 20 MEQ TAB PO SCH (08:39)
[2016-06-29] MEDS: DOCUSATE SODIUM 100 MG CAP PO SCH (08:39)
[2016-06-29] MEDS: CITALOPRAM 20 MG TAB PO SCH (08:39)
[2016-06-29] MEDS: NYSTATIN 100000 UNIT TP SCH (08:40)
[2016-06-29] MEDS: PANTOPRAZOLE SODIUM 40 MG TAB PO SCH (08:40)
[2016-06-29 08:41] VITALS: O2SAT 96
[2016-06-29] MEDS: traMADol 50 MG TAB PO PRN (08:50)
[2016-06-29 11:29] VITALS: BP 132/78; PULSE 78; RESP 15; TEMP 97.9
--- NOTE | 2016-06-29 12:17 | PDIAF ---
- Diagnosis Diagnosis: s/p AVR, MVR, TVA, Carr-Maze IV Code Status: Full Code - Medication Management Discharge Medications: Medications to Continue on Transfer Citalopram [CeleXA 20 MG] 40 mg PO DAILY 08/11/14 [Last Taken 06/21/16] Cyclobenzaprine [Flexeril 10 MG (*)] 10 mg PO TID PRN 08/11/14 [Last Taken 12/11] Nystatin Powder [Mycostatin Powder] 1 tiffanie TP DAILY 08/11/14 [Last Taken 06/21/16 ] Simvastatin [Zocor] 20 mg PO HS 08/11/14 [Last Taken 06/19/16] Docusate Sodium [Colace 100 MG (*)] 100 mg PO BID 01/07/16 [Last Taken 06/20/16 09:00] Ergocalciferol [Vitamin D2 (*)] 50,000 unit PO Q14D 01/07/16 [Last Taken ] Acyclovir 800 mg PO 5XD PRN 06/21/16 [Last Taken Unknown] Diclofenac Sodium [Voltaren Gel (*)] 2 gm TP QID 06/21/16 [Last Taken 06/21/16] Furosemide [Lasix 20 MG (*)] 20 mg PO DAILY 06/21/16 [Last Taken 06/18/16] Pantoprazole Sodium [Protonix 40mg (*)] 40 mg PO BID 06/21/16 [Last Taken ] oxyCODONE/APAP 5/325 [Percocet 5/325 (*)] 1 tab PO Q4HRS PRN 06/21/16 [Last Taken Unknown] Acetaminophen [Acetaminophen Extra Strength] 500 mg PO Q4H PRN #0 tablet [Last Taken Unknown] Lisinopril [Zestril 5 mg (*)] 5 mg PO DAILY #0 tab 06/29/16 [Last Taken Unknown] Potassium Cl [Klor-Con 20 meq (*)] 20 meq PO BID #0 tab 06/29/16 [Last Taken Unknown] Torsemide [Demadex] 20 mg PO BIDDIUR #0 tab 06/29/16 [Last Taken Unknown] Warfarin Sodium 3 mg PO DAILY AT 4PM #0 tablet 06/29/16 [Last Taken Unknown] Discharge Medications: Refer to the Discharge Home Medication list for PRN reason. - Orders Diet Recommendation: cardiac -low fat low salt, fluid restriction (use comment for amount) (1.5 L) Diet Texture: Regular Texture Diet, Thin Liquids, Meds Whole w/Liquids - Follow Up Care Current Providers and Referrals: Milvia Joseph MD [Primary Care Provider] -
--- NOTE | 2016-06-29 12:21 | PDIAF ---
- Diagnosis Diagnosis: s/p AVR, MVR, TVA, Carr-Maze IV Code Status: Full Code - Medication Management Discharge Medications: Medications to Continue on Transfer Citalopram [CeleXA 20 MG] 40 mg PO DAILY 08/11/14 [Last Taken 06/21/16] Cyclobenzaprine [Flexeril 10 MG (*)] 10 mg PO TID PRN 08/11/14 [Last Taken 12/11] Nystatin Powder [Mycostatin Powder] 1 tiffanie TP DAILY 08/11/14 [Last Taken 06/21/16 ] Simvastatin [Zocor] 20 mg PO HS 08/11/14 [Last Taken 06/19/16] Docusate Sodium [Colace 100 MG (*)] 100 mg PO BID 01/07/16 [Last Taken 06/20/16 09:00] Ergocalciferol [Vitamin D2 (*)] 50,000 unit PO Q14D 01/07/16 [Last Taken ] Acyclovir 800 mg PO 5XD PRN 06/21/16 [Last Taken Unknown] Diclofenac Sodium [Voltaren Gel (*)] 2 gm TP QID 06/21/16 [Last Taken 06/21/16] Pantoprazole Sodium [Protonix 40mg (*)] 40 mg PO BID 06/21/16 [Last Taken ] oxyCODONE/APAP 5/325 [Percocet 5/325 (*)] 1 tab PO Q4HRS PRN 06/21/16 [Last Taken Unknown] Acetaminophen [Acetaminophen Extra Strength] 500 mg PO Q4H PRN #0 tablet [Last Taken Unknown] Lisinopril [Zestril 5 mg (*)] 5 mg PO DAILY #0 tab 06/29/16 [Last Taken Unknown] Potassium Cl [Klor-Con 20 meq (*)] 20 meq PO BID #0 tab 06/29/16 [Last Taken Unknown] Torsemide [Demadex] 20 mg PO BIDDIUR #0 tab 06/29/16 [Last Taken Unknown] Warfarin Sodium 3 mg PO DAILY AT 4PM #0 tablet 06/29/16 [Last Taken Unknown] Discharge Medications: Refer to the Discharge Home Medication list for PRN reason. PICC Care - Routine: N/A - Orders Services needed: Registered Nurse, Certified Treatment Plant Mechanic, Master Florist Manager , Physical Therapy, Occupational Therapy Oxygen: 2l [place] Diet Recommendation: cardiac -low fat low salt, fluid restriction (use comment for amount) (1.5 L) Diet Texture: Regular Texture Diet, Thin Liquids, Meds Whole w/Liquids Weigh Patient: daily [place]: No Wound Care Instructions: Sternotomy: Wash daily with soap and water and leave open to air. No ointments/creams. Left groin: Cleanse with Carraklenz spray and dry and a sponge. Apply Cavilon to periwound; place a strip of Aquacel Ag in contact with both openings; secured in place with Transfer foam, place Interdry sheet between Transfer foam folds for wicking. Activity/Weight Bearing Restrictions: Sternal precautions x 4 weeks. Avoid lifting > 10lbs with an outstretched arm. Avoid push/pull activities. Elevate low legs at rest. Avoid prolonged standing or dangling. No driving until cleared by surgery. Additional: Log daily vital signs: weight, heart rate, blood pressure, pulse oximetry. Call [facility] for overnight weight gain > 2lbs, weekly gain > 5lbs or worsening leg swelling. Call [facility] for resting heart rate > 120 or < 60 OR for systolic blood pressure consistently < 90 or > 140. Target oxygen saturation > 89%. Please schedule an appointment with the patient's orthopedic surgeon for concerns regarding right knee. - Labs/Radiology BMP Date: 07/05/16 (At [facility]) CBC Date: 07/05/16 (At [facility]) Imaging Orders: CXR PA/Lateral - At [facility] on 07/05/16 - Follow Up Care Current Providers and Referrals: Naresh Armenta DO [Doctor of Osteopathy] - 07/05/16 10:00 am Naresh Ayoub MD [Medical Doctor] - agency to contact patient (Will be set- up after surgical follow-up.) Milvia Joseph MD [Primary Care Provider] -
[2016-06-29] MEDS ORDERED: WARFARIN SODIUM 3 MG TAB PO ONE (13:30)
[2016-06-29] MEDS ORDERED: WARFARIN SODIUM 5 MG TAB PO ONE ×2 (13:30→16:00)
--- NOTE | 2016-06-30 14:25 | PDDCSUM ---
Discharge Summary Discharge Summary: ADMISSION DATE: 06/21/16 DISCHARGE DATE: 06/29/16 ADMISSION DX: 1. Severe aortic insufficiency 2. Severe mitral valve insufficiency 3. Severe tricuspid insufficiency 4. Longstanding persistent atrial fibrillation 5. Class III CHF with diastolic dysfunction and valvular cardiomyopathy 6. Presence of AICD 7. Morbid obesity DISCHARGE DX: 1. Severe aortic insufficiency 2. Severe mitral valve insufficiency 3. Severe tricuspid insufficiency 4. Longstanding persistent atrial fibrillation 5. Class III CHF with diastolic dysfunction and valvular cardiomyopathy 6. Presence of AICD 7. Morbid obesity PROCEDURES 06/22/16, Naresh Armenta: 1. AVR with #21 Magna bioprosthesis 2. MVR with chordal sparing and #25 Magna bioprosthesis 3. TV annuloplasty with #26 Physio ring 4. Full Crar-Maze IV HOSPITAL COURSE BY PROBLEM LIST 1. Valvular cardiomyopathy: s/p AVR, MVR, TVA with good post-op valvular and biventricular function. 2. Longstanding persistent atrial fibrillation: s/p Carr-Maze IV with post- operative SR. Coumadin prescribed for INR goal 2-3, duration as per Carr-Maze protocol. 3. Class III CHF: medically optimized with diuretics and ACEi. 4. Presence of AICD: Interrogated post-operatively with pacing function set to 85 and defibrillator function turned on. CONDITION Good DISPOSITION [facility] ACTIVITY Pt was instructed on sternal precautions, activity limitations, and which problems to call [facility] with. Please see Discharge Plan and Interagency Discharge Form in chart for specifics. D/C MEDICATIONS 1. Citalopram [CeleXA 20 MG] 40 mg PO DAILY 2. Cyclobenzaprine [Flexeril 10 MG (*)] 10 mg PO TID PRN 3. Nystatin Powder [Mycostatin Powder] 1 tiffanie TP DAILY 4. Simvastatin [Zocor] 20 mg PO HS 5. Docusate Sodium [Colace 100 MG (*)] 100 mg PO BID 6. Ergocalciferol [Vitamin D2 (*)] 50,000 unit PO Q14D 7. Acyclovir 800 mg PO 5XD PRN 8. Diclofenac Sodium [Voltaren Gel (*)] 2 gm TP QID 9. Pantoprazole Sodium [Protonix 40mg (*)] 40 mg PO BID 10. oxyCODONE/APAP 5/325 [Percocet 5/325 (*)] 1 tab PO Q4HRS PRN 11. Acetaminophen [Acetaminophen Extra Strength] 500 mg PO Q4H PRN 12. Lisinopril [Zestril 5 mg (*)] 5 mg PO DAILY Potassium Cl [Klor-Con 20 meq (* )] 20 meq PO BID 13. Torsemide [Demadex] 20 mg PO BIDDIUR 14. Warfarin Sodium 3 mg PO DAILY AT 4PM for INR goal 2-3 PENDING STUDIES/LABS 1. BMP, CBC, INR, and CXR - prior to surgical follow-up F/U APPOINTMENTS 1. Naresh Armenta - 07/05/16, 10:00 AM 2. Naresh Ayoub - to be determined at surgical follow-up
--- NOTE | 2016-07-04 12:01 | PQFORM ---
PHYSICIAN QUERY FORM Needs Your Response This query form is being sent to you to assure this patient record is coded properly. Please respond to the question below: WELDER OXYHYDROGEN QUESTION: Dear Ponce Barry, Respiratory failure is documented in the consult from the medical records custodian, Dr. Alejandro, postoperatively and again in the progress notes. Did the patient have respiratory failure following surgery and should this diagnosis be added to the discharge summary? yes NO___ no -- Pt was never reintubated nor in respiratory distress needing intervention. other Thank you for your clarification, Thelma Bradford, [facility] HIM Coding [phone] INSTRUCTIONS FOR RESPONSE: Answer question by clicking on the "Edit Document" button. Move cursor to area below the stars. When complete, hit "Save." Click on the "Sign" button, then click "Sign" again. Type in your PIN and hit "Enter." MTDD
== END 2016-06-29 14:38 | DRG 217 ==
LOC: FCATH 10:55 → F2W 15:09 → F2N 06-22 08:15 → F2W 06-25 14:17
PROVIDERS: ADMIT Thoracic Surgery (Cardiothoracic Vascular Surgery); ATTEND Thoracic Surgery (Cardiothoracic Vascular Surgery)
PROC: B2111ZZ Fluoroscopy of Multiple Coronary Arteries using Low Osmolar Contrast (ICD-10-PCS; 2016-06-21)
PROC: 4A023N8 Measurement of Cardiac Sampling and Pressure, Bilateral, Percutaneous Approach (ICD-10-PCS; 2016-06-21)
PROC: B2151ZZ Fluoroscopy of Left Heart using Low Osmolar Contrast (ICD-10-PCS; 2016-06-21)
PROC: 02L70ZK Occlusion of Left Atrial Appendage, Open Approach (ICD-10-PCS; principal; 2016-06-22)
PROC: 30233N1 Transfusion of Nonautologous Red Blood Cells into Peripheral Vein, Percutaneous Approach (ICD-10-PCS; principal; 2016-06-22)
PROC: 02580ZZ Destruction of Conduction Mechanism, Open Approach (ICD-10-PCS; principal; 2016-06-22)
PROC: 02UJ0JZ Supplement Tricuspid Valve with Synthetic Substitute, Open Approach (ICD-10-PCS; principal; 2016-06-22)
PROC: B246ZZ4 Ultrasonography of Right and Left Heart, Transesophageal (ICD-10-PCS; principal; 2016-06-22)
PROC: 02RG08Z Replacement of Mitral Valve with Zooplastic Tissue, Open Approach (ICD-10-PCS; principal; 2016-06-22)
PROC: 5A1221Z Performance of Cardiac Output, Continuous (ICD-10-PCS; principal; 2016-06-22)
PROC: 02RF08Z Replacement of Aortic Valve with Zooplastic Tissue, Open Approach (ICD-10-PCS; principal; 2016-06-22)
DX: I08.3 Combined rheumatic disorders of mitral, aortic and tricuspid valves (principal); I50.32 Chronic diastolic (congestive) heart failure; I42.9 Cardiomyopathy, unspecified; I48.1 Persistent atrial fibrillation; I27.2 Other secondary pulmonary hypertension; D62 Acute posthemorrhagic anemia; Z95.810 Presence of automatic (implantable) cardiac defibrillator; E66.01 Morbid (severe) obesity due to excess calories; Z68.37 Body mass index [BMI] 37.0-37.9, adult; G47.33 Obstructive sleep apnea (adult) (pediatric); I10 Essential (primary) hypertension; E78.5 Hyperlipidemia, unspecified; G71.3 Mitochondrial myopathy, not elsewhere classified; D64.9 Anemia, unspecified; M25.561 Pain in right knee; Z79.01 Long term (current) use of anticoagulants
CPT/HCPCS: 82947-QW; 86022-90; 92610-GN; 97110-GP; 97116-GP; 97163-GP; 97166-GO; 97530-GP; 97535-GO; C1760; G8978-GP-CM; G8979-GP-CJ; G8987-GO-CL; G8988-GO-CJ; G8996-GN-CH; G8997-GN-CH; G8998-GN-CH; J0153; J0282; J0690; J1250; J1265; J1644; J1815; J2001; J2150; J2250; J2260; J2310; J2370; J2704; J2720; J2765; J2930; J3010; J7060; P9016; P9041; Q9967

== ENCOUNTER → 2016-07-05 | Outpatient (CLI) | payer OTHER, MEDICAID | LOC: FIMAGING 09:09 | PROVIDERS: ATTEND Thoracic Surgery (Cardiothoracic Vascular Surgery) | DX: R91.8 Other nonspecific abnormal finding of lung field (principal); I38 Endocarditis, valve unspecified; I48.91 Unspecified atrial fibrillation; Z95.0 Presence of cardiac pacemaker; Z09 Encounter for follow-up examination after completed treatment for conditions other than malignant neoplasm ==

== ENCOUNTER 2016-07-25 09:48 | Day surgery (SDC) | payer OTHER, MEDICAID ==
[2016-07-25] MEDS ORDERED: NS 500 ML IV ONE (09:54)
[2016-07-25] MEDS ORDERED: MIDAZOLAM 2 MG/2 ML VIAL IVP ONE (09:54)
[2016-07-25] MEDS ORDERED: fentaNYL 100 MCG/2 ML INJ IVP ONE (09:54)
--- NOTE | 2016-07-25 10:10 | CPEKG ---
Heart Rate: 79 RR Interval: 759 QRSD Interval: 162 QT Interval: 464 QTC Interval: 533 QRS [place]: -55 T Wave [place]: 125 EKG Severity - ABNORMAL ECG - EKG Impression: AFIB/FLUTTER AND VENTRICULAR-PACED RHYTHM Preliminary Awaiting MD Review
[2016-07-25 10:57] LABS: INR 2.07 (0.83-1.16); PROTIME(PATIENT) 23.4 SEC (12.0-15.0)
[2016-07-25] MEDS ORDERED: PROPOFOL 200 MG/20 ML VIAL ONE (10:57)
[2016-07-25 10:58] LABS: APTT 36.8 SEC (23.0-38.0)
[2016-07-25 11:32] LABS: ANION GAP 13 mEq/L (8-16); CALCIUM 9.7 mg/dL (8.5-10.4); CARBON DIOXIDE 25 mEq/l (22-31); CHLORIDE 102 mEq/L (97-110); CREATININE 1.9 mg/dL (0.6-1.0); GLOMERULAR FILTRATION RATE 27; GLUCOSE 102 mg/dL (70-100); MAGNESIUM 2.5 mg/dL (1.6-2.3); POTASSIUM 4.8 mEq/L (3.5-5.2); SODIUM 140 mEq/L (134-144)
--- NOTE | 2016-07-25 11:47 | CPEKG ---
Heart Rate: 84 RR Interval: 714 P-R Interval: 204 QRSD Interval: 166 QT Interval: 464 QTC Interval: 549 P [place]: 0 QRS [place]: -54 T Wave [place]: 126 EKG Severity - ABNORMAL ECG - EKG Impression: VENTRICULAR-PACED RHYTHM Preliminary Awaiting MD Review
--- NOTE | 2016-07-25 14:14 | PDTEE1 ---
LESLIE Cardioversion Procedure Procedure: Electrical Cardioversion Indications: Other (Atrial tachycardia) Consent: Signed and in Chart Anticoagulation: Warfarin Procedural Details: Pads were placed in anterior-posterior position. No LESLIE performed in light of ongoing therapeutic anticoagulation. Synchronized cardioversion attempt #1: 100J Results: Normal sinus rhythm Conclusions: Successful Cardioversion Patient Problems: Problems Problem Status Onset Acute blood loss anemia Acute Atrial fibrillation with rapid ventricular response Acute Cardiomyopathy Acute S/P AVR (aortic valve replacement) Acute S/P TVR (tricuspid valve repair) Acute S/P ablation of atrial fibrillation Acute S/P mitral valve replacement with bioprosthetic valve Acute Aortic regurgitation Chronic CHF (congestive heart failure), NYHA class III Chronic Mitral regurgitation Chronic Morbid obesity Chronic Tricuspid insufficiency Chronic
== END 2016-07-25 13:10 | disposition home or self-care (01) ==
LOC: FCATH 09:48
PROVIDERS: ATTEND Internal Medicine Interventional Cardiology
PROC: 5A2204Z Restoration of Cardiac Rhythm, Single (ICD-10-PCS; principal; 2016-07-25)
DX: I47.1 Supraventricular tachycardia (principal); Z95.2 Presence of prosthetic heart valve
CPT/HCPCS: J2704

== ENCOUNTER → 2016-08-03 | Outpatient (CLI) | payer OTHER, MEDICAID | LOC: BHLMT 14:45 | PROVIDERS: ATTEND Internal Medicine Interventional Cardiology | DX: I47.1 Supraventricular tachycardia (principal); I44.30 Unspecified atrioventricular block; I42.2 Other hypertrophic cardiomyopathy; I38 Endocarditis, valve unspecified | CPT/HCPCS: 93005-PO ==

== ENCOUNTER → 2016-09-20 | Outpatient (CLI) | payer OTHER, MEDICAID | LOC: BHLMT 10:00 | PROVIDERS: ATTEND Internal Medicine | DX: I42.9 Cardiomyopathy, unspecified (principal); I48.91 Unspecified atrial fibrillation; I35.9 Nonrheumatic aortic valve disorder, unspecified; I34.9 Nonrheumatic mitral valve disorder, unspecified | CPT/HCPCS: 93306-PO ==

== ENCOUNTER 2016-10-31 14:24 | Emergency (ER) | payer OTHER, MEDICAID ==
[2016-10-31 14:32] VITALS: RESP 16
[2016-10-31 15:11] LABS: % IMMATURE GRANULYOCYTES 0.3 % (0.0-1.1); ABSOLUTE IMMATURE GRANULOCYTES 0.02 10^3/uL (0.00-0.10); ADD DIFF? NO; ADD MORPH? NO; ADD SCAN? NO; ATYPICAL LYMPHOCYTE FLAG 0 (0-99); FRAGMENT RBC FLAG 0 (0-99); HEMATOCRIT 39.1 % (38.0-47.0); HEMOGLOBIN 12.6 g/dL (12.6-16.3); LEFT SHIFT FLG 0 (0-99); LIPEMIA HEMOLYSIS FLAG 80 (0-99); MEAN CELL HEMOGLOBIN 29.3 pg (27.9-34.1); MEAN CELL HEMOGLOBIN CONCENTR. 32.2 g/dL (32.4-36.7); MEAN CELL VOLUME 90.9 fL (81.5-99.8); MEAN PLATELET VOLUME 11.3 fL (8.7-11.7); PLATELET CLUMPS FLAG 0 (0-99); PLATELET COUNT 190 10^3/uL (150-400); RED CELL DISTRIBUTION WIDTH 15.1 % (11.5-15.2)
[2016-10-31 15:21] LABS: INR 2.38 (0.83-1.16); PROTIME(PATIENT) 26.2 SEC (12.0-15.0)
--- NOTE | 2016-10-31 15:23 | EDPHY ---
H & P Smoking Status: Never smoked Time Seen by Provider: 10/31/16 15:20 HPI/ROS: HPI: Ms. Green is a 66 yrs, female who presents with Chief Complaint: Right latter day and right eye pressure Location: Behind Right eye Quality: Pressure Duration: 3 days Signs and Symptoms: No radiation, no weakness, no difficulty speaking, no fever , no floaters, no blurred vision, no ocular pain, no injury Timing: Constant Severity: [id number] Context: Patient has a complex cardiac history and is on anticoagulation with Coumadin. Patient states that 3 days ago she was sitting at the computer and developed right temporal pressure and as well as pressure behind her right eye. She noted that she her vision blacked out for a few sec some seconds but then quickly returned. Today it is a patient was looking at the solar eclipse and noticed continued right eye pressure. Her neighbors encouraged her to come to the ER to get it checked out. Patient unsure of last eye exam but reports laser treatment at [facility] by Dr. Lovett for pre-glaucoma with readings 12-13 mmHg in past. Patient reports compliance of medications. Today she notes that her vision is completely normal was able to drive herself to the ER. She does have a history of migraines in the past but has not had 1 in several years. Modifying Factors: Comment: ROS: Eyes: No blurred vision Respiratory: No shortness of breath, no cough Cardiovascular: No chest pain Gastrointestinal: No nausea, no vomiting no diarrhea Genitourinary: No dysuria Extremities: No myalgias Neurologic: No weakness, no numbness Skin: No rashes Hematologic: No bruising, no bleeding MEDICAL/SURGICAL HISTORY: Aortic insufficiency, mitral valve insufficiency, tricuspid insufficiency, atrial fib, on secondary anticoagulation with Coumadin, class 2 CHF, AICD, morbid obesity. (Shawna Porter) Social History: Very active. Retired. (Shawna Porter) Physical Exam: CONSTITUTIONAL: Pleasant elderly white female, awake and alert, no obvious distress HEENT: Atraumatic and normocephalic, PERRL, EOMI. Conjunctiva clear. no proptosis, IOP 17 mmHg, Normal visual acuity. No peripheral field deficit. Mild tenderness with palpation over her right temporal artery. Tympanic membranes clear. Oropharynx clear, no exudate and moist pink mucosa. Airway patent. No lymphadenopathy. No meningismus. Cardiovascular: Normal S1/S2, irregular rate, regular rhythm, without murmur rub or gallop. PULMONARY/CHEST: Symmetrical and nontender. Clear to auscultation bilaterally Good air movement. No accessory muscle usage. ABDOMEN: Soft, nondistended, nontender, no rebound, no guarding, no peritoneal signs, no masses or organomegaly. No CVAT. EXTREMITIES: 2/2 pulses, no deformities, no clubbing, no cyanosis or edema. NEUROLOGICAL: no focal neuro deficits. GCS 15. SKIN: Warm and dry, no erythema. no rash. Good capillary refill. (Shawna Porter) Constitutional: Initial Vital Signs Temperature (C) 36.4 C 10/31/16 14:30 Heart Rate 72 10/31/16 14:30 Respiratory Rate 16 10/31/16 14:30 Blood Pressure 110/45 L 10/31/16 14:30 O2 Sat (%) 91 L 10/31/16 14:30 O2 Delivery Mode Room Air Allergies/Adverse Reactions: levofloxacin [From Levaquin] Allergy (Intermediate, Verified 05/21/14 15:47) Muscle Cramping aspirin Allergy (Verified 02/08/16 19:04) Other-Enter Comments codeine Allergy (Verified 02/08/16 19:04) Other-Enter Comments Home Medications: Medication Instructions Recorded Citalopram [CeleXA 20 MG] 40 mg PO DAILY 08/11/14 Cyclobenzaprine [Flexeril 10 MG 10 mg PO TID PRN 08/11/14 (*)] Nystatin Powder [Mycostatin Powder] 1 tiffanie TP DAILY 08/11/14 Simvastatin [Zocor] 20 mg PO HS 08/11/14 Docusate Sodium [Colace 100 MG (*)] 100 mg PO BID 01/07/16 Ergocalciferol [Vitamin D2 (*)] 50,000 unit PO Q14D 01/07/16 Acyclovir 800 mg PO 5XD PRN 06/21/16 Diclofenac Sodium 1% [Voltaren Gel 2 gm TP QID 06/21/16 (*)] Pantoprazole Sodium [Protonix 40mg 40 mg PO BID 06/21/16 (*)] oxyCODONE/APAP 5/325 [Percocet 1 tab PO Q4HRS PRN 06/21/16 5/325 (*)] Acetaminophen [Acetaminophen Extra 500 mg PO Q4H PRN #0 tablet 06/29/16 Strength] Potassium Cl [Klor-Con 20 meq (*)] 20 meq PO BID #0 tab 06/29/16 Torsemide [Demadex] 20 mg PO BIDDIUR #0 tab 06/29/16 Warfarin Sodium 3 mg PO DAILY AT 4PM #0 tablet 06/29/16 SOTALOL 10/31/16 Medical Decision Making - Diagnostics Imaging Results: Imaging Impressions Head CT 10/31/16 14:59 Impression: 1. No acute intracranial findings. 2. Diffuse cerebral atrophy with periventricular and subcortical low attenuation consistent with chronic microvascular ischemic gliosis. Findings discussed with Shawna Porter 10/31/2016 at 16:16. ED Course/Re-evaluation: Head CT scan, labs, including coags, Spencer-Pen ordered Low risk for amaurosis Fugax as on Coumadin No signs of Vann's palsy ESR within normal limits; no temporal arteritis IOP 17 mmHg INR 2.3 Visual acuity: right 20/40; left 20/40; both 20/30 Called by radiologist and head CT scan does not show any acute process including intracranial hemorrhage Patient given IV Decadron, Tylenol, IV Reglan with moderate relief Patient is to follow up with her eye doctor, Dr. Otto, and primary care provider (Shawna Porter) Differential Diagnosis: Headache including but not limited to subarachnoid hemorrhage, migraine headache , CVA, glaucoma, temporal arteritis, retinal disturbances, tension headache and infectious causes such as meningitis, pharyngitis and sinusitis. (Shawna Porter) Other Provider: PHYSICIAN DOCUMENTATION: The patient was evaluated and managed by the Physician Contact Center Engineer and myself. I have reviewed the chart and agree with the findings and plan of care as documented. In addition, I examined the patient myself at 1515. History confirmed as right-sided temporal headache which radiates to behind her right eye. Currently no visual symptoms. She says that her head hurts behind the eye more than in the eyeball. Tells me she had some type of laser surgery 10 years ago for early glaucoma diagnosed by [facility] [place]. Physical findings as follows: Extraocular motion intact, pupils equal reactive, no proptosis. Globes are soft to palpation. Head CT for headache on warfarin. Intra-ocular pressure. ESR. I am the secondary supervising physician. (Joao Saldana) - Data Points Laboratory Results: Laboratory Results 10/31/16 Unknown 10/31/16 14:50 10/31/16 10/31/16 10/31/16 Unknown 14:50 14:50 WBC RBC Hgb Hct 39.0 % % (38.0-47.0) MCV MCH MCHC RDW Plt Count MPV Neut % (Auto) Lymph % (Auto) [place] % (Auto) Eos % (Auto) Baso % (Auto) Nucleat RBC Rel Count Absolute Neuts (auto) Absolute Lymphs (auto) Absolute Monos (auto) Absolute Eos (auto) Absolute Basos (auto) Absolute Nucleated RBC Immature Gran % Immature Gran # ESR 27 MM/HR MM/HR (0-30) PT 26.2 SEC H SEC (12.0-15.0) INR 2.38 H (0.83-1.16) Sodium 140 mEq/L mEq/L (134-144) Potassium 4.1 mEq/L mEq/L (3.5-5.2) Chloride 103 mEq/L mEq/L (97-110) Carbon Dioxide 24 mEq/l mEq/l (22-31) Anion Gap 13 mEq/L mEq/L (8-16) BUN 22 mg/dL mg/dL (7-23) Creatinine 1.1 mg/dL H mg/dL (0.6-1.0) Estimated GFR 50 Glucose 98 mg/dL mg/dL (70-100) Calcium 9.6 mg/dL mg/dL (8.5-10.4) 10/31/16 14:50 WBC 6.78 10^3/uL 10^3/uL (3.80-9.50) RBC 4.30 10^6/uL 10^6/uL (4.18-5.33) Hgb 12.6 g/dL g/dL (12.6-16.3) Hct 39.1 % % (38.0-47.0) MCV 90.9 fL fL (81.5-99.8) MCH 29.3 pg pg (27.9-34.1) MCHC 32.2 g/dL L g/dL (32.4-36.7) RDW 15.1 % % (11.5-15.2) Plt Count 190 10^3/uL 10^3/uL (150-400) MPV 11.3 fL fL (8.7-11.7) Neut % (Auto) 62.3 % % (39.3-74.2) Lymph % (Auto) 26.3 % % (15.0-45.0) [place] % (Auto) 7.1 % % (4.5-13.0) Eos % (Auto) 3.1 % % (0.6-7.6) Baso % (Auto) 0.9 % % (0.3-1.7) Nucleat RBC Rel Count 0.0 % % (0.0-0.2) Absolute Neuts (auto) 4.23 10^3/uL 10^3/uL (1.70-6.50) Absolute Lymphs (auto) 1.78 10^3/uL 10^3/uL (1.00-3.00) Absolute Monos (auto) 0.48 10^3/uL 10^3/uL (0.30-0.80) Absolute Eos (auto) 0.21 10^3/uL 10^3/uL (0.03-0.40) Absolute Basos (auto) 0.06 10^3/uL 10^3/uL (0.02-0.10) Absolute Nucleated RBC 0.00 10^3/uL 10^3/uL (0-0.01) Immature Gran % 0.3 % % (0.0-1.1) Immature Gran # 0.02 10^3/uL 10^3/uL (0.00-0.10) ESR PT INR Sodium Potassium Chloride Carbon Dioxide Anion Gap BUN Creatinine Estimated GFR Glucose Calcium Departure - Departure Disposition: Home, Routine, Self-Care Clinical Impression: Ocular migraine Clinical Impression: (Ruled Out): Migraine Condition: Good Instructions: Migraine Headache (ED) Additional Instructions: Follow up with eye doctor Dr. Otto, within 1 week. Referrals: Milvia Joseph MD [Primary Care Provider] - 2-3 days, if not improved
[2016-10-31 15:36] LABS: ANION GAP 13 mEq/L (8-16); CALCIUM 9.6 mg/dL (8.5-10.4); CARBON DIOXIDE 24 mEq/l (22-31); CHLORIDE 103 mEq/L (97-110); CREATININE 1.1 mg/dL (0.6-1.0); GLOMERULAR FILTRATION RATE 50; GLUCOSE 98 mg/dL (70-100); POTASSIUM 4.1 mEq/L (3.5-5.2); SODIUM 140 mEq/L (134-144)
[2016-10-31] MEDS ORDERED: ACETAMINOPHEN 500 MG TAB PO ONE (16:20)
[2016-10-31] MEDS ORDERED: DEXAMETHASONE 4 MG/ML VIAL IVP ONE (16:20)
[2016-10-31] MEDS ORDERED: METOCLOPRAMIDE 10 MG/2 ML VIAL IVP ONE (16:20)
[2016-10-31] MEDS ORDERED: MECLIZINE HCL 25 MG TAB PO ONE (16:35)
[2016-10-31 17:05] VITALS: BP 112/67; PULSE 73; TEMP 97.9; O2SAT 96
== END 2016-10-31 17:06 | disposition home or self-care (01) ==
DX: G43.B0 Ophthalmoplegic migraine, not intractable (principal); I50.9 Heart failure, unspecified; Z79.01 Long term (current) use of anticoagulants
CPT/HCPCS: 70450; J1100; J2765; 96374

== ENCOUNTER → 2016-12-13 | Outpatient (CLI) | payer OTHER, MEDICAID | LOC: BHLMT 14:00 | PROVIDERS: ATTEND Internal Medicine Interventional Cardiology | DX: G45.9 Transient cerebral ischemic attack, unspecified (principal); G43.909 Migraine, unspecified, not intractable, without status migrainosus | CPT/HCPCS: 93880-PO ==

== ENCOUNTER → 2017-03-30 | Outpatient (CLI) | payer OTHER, MEDICAID | LOC: FCPNEURO 21:00 | PROVIDERS: ATTEND Psychiatry & Neurology Sleep Medicine | DX: G47.33 Obstructive sleep apnea (adult) (pediatric) (principal) ==

== ENCOUNTER 2017-05-03 09:33 | Day surgery (SDC) | payer OTHER, MEDICAID ==
[2017-05-03] MEDS ORDERED: ceFAZolin 2 GM/SWFI 2 GM/20 ML SYR IVP ONE (09:37)
[2017-05-03] MEDS ORDERED: BACITRACIN IRRIGATION/NS 50,000 UNITS/1,000 ML BTL IRR ONE (09:37)
[2017-05-03] MEDS ORDERED: NS 1,000 ML IV ONE (09:37)
[2017-05-03] MEDS ORDERED: DIAZEPAM 5 MG TAB PO ONE (09:37)
[2017-05-03] MEDS ORDERED: diphenhydrAMINE 25 MG CAP PO ONE (09:37)
--- NOTE | 2017-05-03 09:57 | CPEKG ---
Heart Rate: 70 RR Interval: 857 P-R Interval: 180 QRSD Interval: 174 QT Interval: 516 QTC Interval: 557 P Hamilton: 0 QRS Hamilton: -57 T Wave Hamilton: 120 EKG Severity - ABNORMAL ECG - EKG Impression: ATRIAL-VENTRICULAR DUAL-PACED RHYTHM Electronically Signed By: Javi Vyas 03-May-2017 10:43:09
[2017-05-03 10:17] LABS: PLATELET COUNT 173 10^3/uL (150-400)
--- NOTE | 2017-05-03 10:17 | PDPROPOC ---
Sedation Plan of Care Sedation Plan of Care: vital signs stable, mental status noted, patient educated of risks, benefits, alternatives, patient can tolerate sedation ASA Classification: ASA 2 Planned drugs: fentanyl, midazolam Mallampati Score: Class 1 Mallampati Reference Image: Patient passed 3-3-2 rule?: Yes
--- NOTE | 2017-05-03 10:17 | PDHPUP ---
History & Physical Update H&P update statement: This history and physical update is based on an assessment of the patient which was completed after admission or registration (within 24 hours), but prior to the surgery/procedure. H&P update: H&P reviewed & patient examined, no change in patient's condition since H&P completed
[2017-05-03] MEDS ORDERED: LIDOCAINE 1% 300 MG/30 ML SDV ONE (10:34)
[2017-05-03] MEDS ORDERED: MIDAZOLAM 2 MG/2 ML VIAL ONE ×2 (10:35→11:04)
[2017-05-03] MEDS ORDERED: fentaNYL 100 MCG/2 ML INJ ONE (10:35)
[2017-05-03] MEDS ORDERED: BUPIVACAINE 0.5% 30 ML SDV ONE (10:35)
[2017-05-03] MEDS ORDERED: LIDO/EPI 1% **for epidural** 30 ML SDV ONE (10:35)
[2017-05-03 10:36] LABS: INR 1.34 (0.83-1.16); PROTIME(PATIENT) 16.8 SEC (12.0-15.0)
--- NOTE | 2017-05-03 11:55 | CPEKG ---
Heart Rate: 69 RR Interval: 870 P-R Interval: 256 QRSD Interval: 184 QT Interval: 556 QTC Interval: 596 P [place]: 125 QRS [place]: -61 T Wave [place]: 111 EKG Severity - ABNORMAL ECG - EKG Impression: A-V DUAL-PACED RHYTHM Electronically Signed By: Javi Vyas 03-May-2017 17:27:58
--- NOTE | 2017-05-03 14:45 | CPIP ---
[f rep st] INVASIVE CARDIAC PROCEDURE DATE OF PROCEDURE: 05/03/2017 INDICATIONS: The patient is a 67-year-old. She has a history of complete heart block. She has a pr evious dual-chamber pacemaker which was implanted in 2004 and upgraded to a dual-chamber ICD in 2009. Her current device is at elective replacement indicators. PROCEDURE: ICD generator change. TECHNIQUE: Following informed consent and in the fasting state, the patient was brought to the [facility] catheterization laboratory. Prior to the procedure, it was confirmed that the patient had an esca pe rhythm of about 30 beats per minute. The left chest was prepped and draped in usual sterile fashi on. 2% lidocaine was infiltrated in the skin overlying the previously placed device. Using the #10 blade, a 4 cm incision was made. Using blunt and sharp dissection, the ICD capsule was identified wh ich was opened bluntly. The device was then delivered from the pocket. Electrocautery was used to c auterize all bleeders. The leads were freed slightly from the surrounding scar tissue. The leads we re disconnected from the header. The ventricular lead was tested independently with excellent captur e and sensing. The pocket was then irrigated with antibiotic-containing solution. The pocket was th en irrigated with antibiotic-containing solution. The new device was brought to the field and the le ads were affixed to the header according to video journalist guidelines. The device was then replaced ba ck in the pocket and the pocket closed in 3 layers using 2 layers of interrupted suture with 2-0 and 3-0 Vicryl and finally 3-0 StrataFix for the skin. Steri-Strips and a dry dressing were applied. COMPLICATIONS: None. DEVICE INFORMATION: The right atrial lead is a Medtronic [id number] lead implanted August 31, 2004, serial # [id number]. The right ventricular pace/sense lead Medtronic lead implanted August 31, 2004, serial #[id number]. The right ventricular high-voltage lead is Biotronik Linox [id number], implanted August 31, 2009, [facility] #[id number]. In the atrium, P waves were sensed at 4.6 mV with a capture threshold of 0.4 millise conds at 1 V with lead impedance of 430 ohms. In the right ventricle, sensed R waves were 24 mV and capture was 0.4 milliseconds at 1 V with a lead impedance of 734 ohms. Through the high-voltage lead , lead impedance was 678 ohms. COMPLICATIONS: None. DISPOSITION: The patient will be transferred to the C[facility] and discharged home later today. /[id number]/MODL
== END 2017-05-03 15:00 | disposition home or self-care (01) ==
LOC: FCATH 09:33
PROVIDERS: ATTEND Internal Medicine Cardiovascular Disease
DX: Z45.010 Encounter for checking and testing of cardiac pacemaker pulse generator [battery] (principal); I44.30 Unspecified atrioventricular block; I42.2 Other hypertrophic cardiomyopathy; I11.0 Hypertensive heart disease with heart failure; I48.91 Unspecified atrial fibrillation; E78.5 Hyperlipidemia, unspecified; G47.33 Obstructive sleep apnea (adult) (pediatric); I50.32 Chronic diastolic (congestive) heart failure; I08.3 Combined rheumatic disorders of mitral, aortic and tricuspid valves; Z79.01 Long term (current) use of anticoagulants; Z95.2 Presence of prosthetic heart valve
CPT/HCPCS: C1721; J0690; J2250; J3010

== ENCOUNTER → 2017-07-17 | Outpatient (CLI) | payer OTHER, MEDICAID | LOC: FIMAGING 13:11 | PROVIDERS: ATTEND Internal Medicine Interventional Cardiology | DX: R07.9 Chest pain, unspecified (principal); Z95.2 Presence of prosthetic heart valve ==

== ENCOUNTER → 2017-07-27 | Outpatient (CLI) | payer OTHER, MEDICAID | LOC: BHLMT 13:15 | PROVIDERS: ATTEND Internal Medicine Cardiovascular Disease | DX: I35.9 Nonrheumatic aortic valve disorder, unspecified (principal); I05.9 Rheumatic mitral valve disease, unspecified; I07.9 Rheumatic tricuspid valve disease, unspecified | CPT/HCPCS: 93306-PO ==